=== PATIENT | male | born 1960 | race Caucasian/White ===

== ENCOUNTER 2017-05-12 17:58 | Emergency (ER) | payer BC ==
--- OUTSIDE RECORDS SUMMARY | 2017-05-12 18:02 | XMS REPORT | Clinical Summary ---
:1960 Author Organization [facility] Address [address] [place] [address] Care Team Providers Name Role Phone Luis Alberto Klein MD Primary Care Provider Allergies Active Allergy Reactions Severity Noted Date Comments No Known Drug Allergies 08/07/2015 Current Medications Prescription Sig. Disp. Refills Start Date End Date Status esomeprazole Take 40 mg by Active (NexIUM) 40 MG mouth daily capsule before breakfast. AMILoride (MIDAMOR) Take 5 mg by Active 5 MG tablet mouth 2 (two) times a day. ergocalciferol Take 50,000 Active (VITAMIN D2) 50,000 Units by mouth unit capsule 2 (two) times a week. Wednesday, lactulose 10 Take 20 g by Active gram/15 mL (15 mL) mouth 3 (three) solution times a day as needed (constipation). metoprolol tartrate Take 75 mg by Active (LOPRESSOR) 50 mg mouth 2 (two) tablet times a day. multivitamin with Chew 1 tablet Active minerals (CENTRUM daily with FLAVOR BURST) breakfast. tablet,chewable chewable tablet tiotropium Place 1 capsule Active (SPIRIVA) 18 mcg into inhaler per inhalation and inhale once capsule daily. macitentan Take 1 tablet 30 tablet 11 12/21/2016 Active (OPSUMIT) 10 mg (10 mg total) tablet by mouth daily. tadalafil (ADCIRCA) Take 2 tablets 60 tablet 11 03/03/2017 Active 20 mg tablet (40 mg total) by mouth daily. fluticasone Inhale 2 puffs 12 g 3 04/08/2017 Active (FLOVENT HFA) 110 2 (two) times a 9 mcg/actuation day. Rinse inhaler mouth after each treatment metoprolol Take 200 mg by 3 06/27/2015 Discontinued succinate XL mouth once 7 (TOPROL-XL) 200 MG daily. 24 hr tablet ESOMEPRAZOLE Take by mouth. Discontinued MAGNESIUM (NEXIUM 7 ORAL) ALLOPURINOL ORAL Take by mouth. Discontinued 7 metoprolol Take 200 mg by Discontinued succinate XL mouth. 7 (TOPROL XL) 200 MG 24 hr tablet furosemide (LASIX) Take 1 tablet 90 tablet 6 08/07/2015 Discontinued 40 MG tablet (40 mg total) 7 by mouth daily. AMILoride (MIDAMOR) Take 1 tablet 180 tablet 6 08/07/2015 Discontinued 5 MG tablet (5 mg total) by 7 mouth 2 (two) times a day. BREO ELLIPTA 100-25 INHALE 1 90 each 11 12/11/2015 Discontinued mcg/dose blister PUFF(S) EVERY 7 with device powder DAY BY for inhalation INHALATION ROUTE FOR 90 DAYS. OPSUMIT 10 mg TAKE 1 TABLET 30 tablet 12 12/27/2015 Discontinued tablet (10MG) BY MOUTH 7 ONCE DAILY. DO NOT HANDLE IF . DO NOT SPLIT, CRUSH, OR CHEW TABLET. REVIEW MEDICATION GUIDE. FOR REFIL albuterol Inhale 2 puffs 18 g 11 01/06/2016 Discontinued (PROVENTIL HFA) 90 every 6 (six) 7 mcg/actuation hours as needed inhaler for wheezing. fluticasone Inhale 2 puffs 12 g 11 03/03/2016 (FLOVENT HFA) 110 2 (two) times a 8 mcg/actuation day. inhalerIndications: Pulmonary hypertension SPIRIVA WITH INHALE 1 90 capsule 3 03/16/2016 Discontinued HANDIHALER 18 mcg CAPSULE VIA 7 per inhalation HANDIHALER ONCE capsule DAILY AT THE SAME TIME EVERY DAY tadalafil 20 mg Take 20 mg by 90 tablet 0 04/29/2016 Discontinued tablet mouth daily for 7 90 days. tadalafil 20 mg Take 20 mg by 90 tablet 0 06/01/2016 Discontinued tablet mouth daily for 7 90 days. ADCIRCA 20 mg TAKE 1 TABLET 90 tablet 4 07/28/2016 Discontinued tablet (20MG) BY MOUTH 7 DAILY. CALL TO REFILL. allopurinol Take 100 mg by Discontinued (ZYLOPRIM) 100 MG mouth daily. 7 tablet AMILoride (MIDAMOR) TAKE 1 TABLET 180 tablet 3 09/07/2016 Discontinued 5 MG tablet BY MOUTH TWICE 7 A DAY furosemide (LASIX) TAKE 1 TABLET 90 tablet 6 10/05/2016 Discontinued 40 mg tablet BY MOUTH EVERY 7 DAY lactulose 20 Take 30 mL (20 1000 mL 3 11/27/2016 Discontinued gram/30 mL solution g total) by 7 mouth 3 (three) times a day for 30 days. Take as needed to have 2 to 3 stools per day ergocalciferol Take 1 capsule 12 capsule 1 11/30/2016 Discontinued (VITAMIN D2) 50,000 (50,000 Units 7 unit capsule total) by mouth 2 (two) times a week for 12 doses. eomajcuu-syub-cco-f Chew 1 tablet 30 tablet 0 11/27/2016 Discontinued olic acid daily with 7 (multivitamin-iron- breakfast for minerals-folic 30 days. acid) 3,500-18-0.4 Centrum unit-mg-mg chewable table tablet,chewable chewable tablet thiamine (vitamin Take 1 tablet 30 tablet 0 11/27/2016 Discontinued B-1) 100 MG tablet (100 mg total) 7 by mouth daily for 30 days. tadalafil (ADCIRCA) Take 20 mg by Discontinued 20 mg tablet mouth daily. 8 furosemide (LASIX) Take 40 mg by Discontinued 40 mg tablet mouth daily. 7 doxycycline Take 1 capsule 14 capsule 0 12/11/2016 Discontinued (VIBRAMYCIN) 100 MG (100 mg total) 7 capsule by mouth 2 (two) times a day with meals for 7 days. furosemide (LASIX) Take 1 tablet 60 tablet 0 12/11/2016 40 mg tablet (40 mg total) 7 by mouth 2 (two) times a day for 30 days. traMADol (ULTRAM) Take 1 tablet 30 tablet 0 12/11/2016 50 mg tablet (50 mg total) 7 by mouth 3 (three) times a day as needed for moderate pain for up to 10 days. Active Problems Problem Noted Date Marijuana use 02/22/2017 Cognitive impairment 02/22/2017 Other ascites 12/07/2016 SBP (spontaneous bacterial peritonitis) 12/07/2016 Severe sepsis without septic shock 12/07/2016 Acquired hyperbilirubinemia 11/17/2016 Disorder of liver 11/17/2016 Obstructive sleep apnea syndrome 08/07/2015 Overview: Last Assessment & Plan: Using it regularly Last Assessment & Plan: Uses cpap every night Tolerating well Pulmonary hypertension 08/07/2015 Overview: Overview: Right and left heart cath by Dr. Reynolds PAP of 770-75/ 30 , LVEDP of 12; RA= a=12, X=4 mean=8; RV ( at end of procedure 65/8-10) Initial Data Patient tachycardic and multifocal PVC MVO2 67 Joaquin pheral sat=91; CO TD of 4.4 CI of 1.97; Vidhi CO of 6.35, this is low for liver disease. pfts done at [facility] 01/2014 pretty normal ie 92-94% percent predicted; tlc 100 % predicted ; dlco 83% predicted. CT reported ( not high res) normal parenchyma. Very bad hemodynamics initially . He had A course of letairis before and had severe lower limb edema with this. His initial hemodynamic showed high RAP and higher PAP but he was having a lot of tachy cardia and PVC then . No vasodilator benefit. Needs additional theapy . Will start opsumit given history of edema with letairis . Last Assessment & Plan: 6MWT with oxygen saturation- today labs- today Continue opsimut and adcirca- tolerating well Start pulmonary rehab Low salt diet Last Assessment & Plan: Continue adcirca Exam shows no evidence of RHF Hypercholesteremia 08/07/2015 Chest pain 05/30/2014 Hepatic cirrhosis 03/28/2014 Overview: Overview: Unclear etiology of his Live cirrhosis Patient does not know his MELD score Patient advised to make an apt to see Dr Devine in follow up Last Assessment & Plan: Sees Dr. Devine for cirrhosis of unclear etiology . Has regular MRI . Is apparently not hep C. He is not being considered for transplant as he is very well. His PH however is severe . He had FC IV symptoms on presentation ( syncope). Currently remains FC III, but better. No signs of heart failure. If transplant contemplated will have to have much better control of severe PH. Last Assessment & Plan: F/u with hepatology Obesity (BMI 30-39.9) 03/28/2014 Overview: Last Assessment & Plan: The patient is asked to make an attempt to improve diet and exercise patterns to aid in medical management of this problem. Start graded exercise program - stop when you start to feel tired or short of breath and rest for a few min and than can continue exercise Avoid processed meat, soups, canned food, sodas, nigerian food, fried food, fast food, chips and food in large quantities. Consider eating fish, chicken, vegetables and fruits Portion control - eat 1/4 less than your usual meal Consider seeing a exterior work helper Last Assessment & Plan: The patient is asked to make an attempt to improve diet and exercise patterns to aid in medical management of this problem. Start graded exercise program - stop when you start to feel tired or short of breath and rest for a few min and than can continue exercise Avoid processed meat, soups, canned food, sodas, nigerian food, fried food, fast food, chips and food in large quantities. Consider eating fish, chicken, vegetables and fruits Portion control - eat 1/4 less than your usual meal Consider seeing a exterior work helper Shortness of breath 03/28/2014 Overview: Last Assessment & Plan: Still pretty limited. Plan: opsumit to background adcirca. Continue inhalers . If not improvement on echo and walk will consider inhaled tyvaso. Last Assessment & Plan: Unchanged shortness of breath Thyroid nodule 03/28/2014 Overview: Last Assessment & Plan: Needs work-up of thyroid nodule Defer to his primary or he can see a [facility] Cuff Matcher Check TSH Gastroesophageal reflux disease 02/15/2005 Overview: Last Assessment & Plan: Barium swallow- as he has cough and hx reflux Elevate the head of the bed 5 inches Wait 3 hours b/w and laying down Last Assessment & Plan: Stable on nexium Encounters Date Type Specialty Care Team Description 04/19/2017 Orders Only Transplant Shree Devine MD 04/19/2017 Telephone Transplant Jorgesandralla, Marijuana Screen/Titer DIMA Russell 04/14/2017 Hospital Encounter Pulmonology Doris Handy, Pulmonary hypertension; Obstructive sleep apnea syndrome; Shortness of breath; Gastroesophageal reflux disease without esophagitis; Cirrhosis of liver without ascites, unspecified hepatic cirrhosis type 04/14/2017 Hospital Encounter Procedural Doris Handy, Shortness of breath Cardiology 04/08/2017 Refill Pulmonology Galindo Castellanos RN 04/08/2017 Refill Pulmonology Galindo Castellanso, DIMA 03/25/2017 Telephone Transplant Casarella, Liver MRB Outcome DIMA Russell 03/25/2017 Documentation Transplant Casarella, Liver MRB Outcome DIMA Russell 03/22/2017 Orders Only Transplant Shree Devine MD 03/03/2017 Refill Pulmonology Deon Glover MD 02/25/2017 Telephone Transplant Edmondlla, Update on Pain Mgmt DIMA Russell Appt 02/22/2017 Hospital Encounter Transplant Shree Devine Cognitive impairment (Primary Dx); MD Anita Marijuana use 02/22/2017 Telephone Transplant Casarellschuyler, Consult Request for DIMA Russellpoultry barn manager 02/22/2017 Telephone Transplant Woelfel, Speak to Coordinator JOSE Gomez 02/22/2017 Telephone Transplant Casarellschuyler, Follow-up DIMA Russell 02/17/2017 Office Visit Pulmonology Doris Handy, Obstructive sleep apnea syndrome (Primary Dx); Shortness of breath; Pulmonary hypertension; Gastroesophageal reflux disease without esophagitis; Obesity (BMI 30-39.9); Cirrhosis of liver without ascites, unspecified hepatic cirrhosis type 02/10/2017 Hospital Encounter Radiology Rashel Funk MD 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 02/01/2017 Telephone Transplant Edmondlla, Liver MRB Outcome DIMA Russell 02/01/2017 Transcribe Orders Transplant Casarella, Liver transplant candidate (Primary Dx); DIMA Russell ELIZABETH (nonalcoholic steatohepatitis) 01/28/2017 Documentation Transplant Casarella, Liver MRB Outcome - DIMA Russell Deferred 01/28/2017 Telephone Transplant Malu, positive drug screen DAISY Mock 01/27/2017 Documentation Transplant John Olivera Liver MRB Presentation Juan 01/18/2017 Hospital Encounter Radiology Donna Granados Cirrhosis of liver MD Rolf with ascites, unspecified hepatic cirrhosis type 01/18/2017 Hospital Encounter Radiology Donna Granados Cirrhosis of liver MD Rolf with ascites, unspecified hepatic cirrhosis type 01/18/2017 Hospital Encounter Radiology Donna Granados Cirrhosis of liver MD Rolf with ascites, unspecified hepatic cirrhosis type 01/18/2017 Hospital Encounter Radiology Donna Granados Cirrhosis of liver MD Rolf with ascites, unspecified hepatic cirrhosis type 01/18/2017 Hospital Encounter Procedural Donna Granados Cirrhosis of liver Cardiology MD Rolf with ascites, unspecified hepatic cirrhosis type 01/18/2017 Hospital Encounter Transplant Donna Granados MD 01/18/2017 Hospital Encounter Transplant Donna Granados MD Weber, Sue 01/18/2017 Hospital Encounter Transplant Basil Guidry, Screening for ischemic MD heart disease 01/18/2017 Hospital Encounter Transplant Basil Guidry MD 01/18/2017 Hospital Encounter Transplant Donna Granados MD 01/18/2017 Hospital Encounter Transplant Donna Granados Cirrhosis of liver MD Rolf with ascites, unspecified hepatic cirrhosis type 01/18/2017 Ancillary Orders Radiology Donna Granados of liver MD Rolf with ascites, unspecified hepatic cirrhosis type 01/18/2017 Transcribe Orders Transplant John Olivera Screening for ischemic Juan heart disease (Primary Dx) 01/14/2017 Transcribe Orders Access Rashel Funk MD 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 (Primary Dx) 12/29/2016 Transcribe Orders Transplant John Olivera Cirrhosis of liver Juan with ascites, unspecified hepatic cirrhosis type (Primary Dx) 12/21/2016 Refill Pulmonology Galindo Castellanos, RN 12/16/2016 Telephone Transplant Manjula Vines Referral - Liver Txp RN 12/07/2016 Hospital Encounter General Internal Marnie Hugo Other ascites ( Primary - Medicine MD Gustavo Dx) 12/11/2016 Jl Merrill MD 11/27/2016 Orders Only Pulmonology Alfaro, Kori, Shortness of breath MA (Primary Dx) 11/25/2016 Procedure Pass Procedural Cardiology 11/25/2016 Surgery Procedural Sam, Orion Cv right and left Cardiology MD Stephen heart cath selective angiography lv [88917 (CPT)] 11/23/2016 Procedure Pass General Internal Medicine 11/23/2016 Procedure Pass Procedural Cardiology 11/17/2016 Hospital Encounter General Internal [facility] Medicine MD Phong 11/27/2016 11/04/2016 Office Visit Pulmonology Doris Handy Pulmonary hypertension (Primary Dx); Obstructive sleep apnea syndrome; Shortness of breath; Gastroesophageal reflux disease without esophagitis; Cirrhosis of liver without ascites, unspecified hepatic cirrhosis type; Obesity (BMI 30-39.9) 11/04/2016 Orders Only PulmonDoris Saenz MD 10/05/2016 Refill PulmonDoris Saenz MD 09/07/2016 Refill PulmonDoris Saenz MD 08/05/2016 Lab Lab Doris Handy MD 08/05/2016 Office Visit Pulmonology Doris Handy Pulmonary hypertension (Primary Dx); Obstructive sleep apnea syndrome; Shortness of breath; Gastroesophageal reflux disease without esophagitis; Cirrhosis of liver without ascites, unspecified hepatic cirrhosis type 07/28/2016 Hospital Encounter Pulmonology Doris Handy Pulmonary hypertension; Obstructive sleep apnea syndrome; Hepatic cirrhosis, unspecified hepatic cirrhosis type; Adult body mass index greater than 30; 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 Hospital Encounter Pulmonology Doris Handy Pulmonary hypertension; Obstructive sleep apnea syndrome; Shortness of breath; Gastroesophageal reflux disease with esophagitis; Alcoholic cirrhosis of liver without ascites 07/28/2016 Hospital Encounter Procedural Doris Handy, Pulmonary hypertension; Cardiology Obstructive sleep apnea syndrome; Shortness of breath; Gastroesophageal reflux disease with esophagitis; Alcoholic cirrhosis of liver without ascites 07/28/2016 Ancillary Orders Pulmonology Doris Handy Pulmonary hypertensive MD venous disease 07/28/2016 Refill Pulmonology Jannette Langley MD 06/22/2016 Office Visit Pulmonology Doris Handy, Pulmonary hypertension (Primary Dx); Obstructive sleep apnea syndrome; Shortness of breath; Gastroesophageal reflux disease with esophagitis; Alcoholic cirrhosis of liver without ascites 06/08/2016 Orders Only Pulmonology López, Clarence pulmonary hypertension ( Primary Dx); JOSE Singh Idiopathic sleep related nonobstructive alveolar hypoventilation; Hepatic cirrhosis, unspecified hepatic cirrhosis type; Adult BMI > 30 06/08/2016 Orders Only Pulmonology Samantha Dawn MA 06/04/2016 Documentation Pulmonology rogers Castellanos RN 06/01/2016 Refill Pulmonology Galindo Castellanos RN after 05/11/2016 Immunizations Name Dates Previously Given Next Due FLUCELVAX QUAD PF (0.5mL syringe) 11/26/2016 FLUZONE HIGH-DOSE PF 02/15/2014 Pneumococcal Conjugate 13-Valent 11/26/2016 Family History Medical History Relation Name Comments Hypertension Brother Hypertension Father Stroke Father mild Other Maternal Grandfather NE Diabetes Mother Relation Name Status Comments Brother Father Maternal Grandfather Mother Social History Tobacco Use Types Packs/Day Years Used Date Former Smoker Cigarettes 1 10 Quit: 1994 Smokeless Tobacco: Never Used Tobacco Cessation: Counseling Given: No Alcohol Use Drinks/Week oz/Week Comments No Sex Assigned at Date Recorded Not on file Last Filed Vital Signs Vital Sign Reading Time Taken Blood Pressure 152/81 02/22/2017 10:17 AM CAR RECORD CLERK Pulse 66 02/22/2017 10:17 AM CAR RECORD CLERK Temperature 36.8 C (98.2 F) 02/22/2017 10:15 AM CAR RECORD CLERK Respiratory Rate 16 02/22/2017 10:15 AM CAR RECORD CLERK Oxygen Saturation 98% 02/22/2017 10:17 AM CAR RECORD CLERK Inhaled Oxygen Concentration - - Weight 83.1 kg (183 lb 3.2 oz) 02/22/2017 10:15 AM CAR RECORD CLERK Height 180.3 cm (5' 11") 02/22/2017 10:15 AM CAR RECORD CLERK Body Mass Index 25.55 02/22/2017 10:15 AM CAR RECORD CLERK Plan of Treatment Date Type Specialty Care Team Description 06/14/2017 Office Visit Pulmonology Doris Handy MD [address] [facility] [address] [place] [id number] Health Maintenance Due Date Last Done Comments COLONOSCOPY 02/12/2008 INFLUENZA VACCINE Completed 11/26/2016, 02/15/2014 Procedures Procedure Name Priority Date/Time Associated Comments Diagnosis ECHOCARDIOGRAM 2D Routine 04/14/2017 11:37 Shortness of Results for this COMPLETE W MMODE AM CAR RECORD CLERK breath procedure are in SPECTRAL COLOR DOPPLER the results (86516) section. CV RIGHT AND LEFT HEART Routine 11/25/2016 6:28 Results for this CATH SELECTIVE CORONARY PM CDT procedure are in LV the results section. ECHOCARDIOGRAM 2D Routine 11/18/2016 12:15 Results for this COMPLETE W MMODE PM CDT procedure are in SPECTRAL COLOR DOPPLER the results (01140) section. ECHOCARDIOGRAM 2D Routine 07/28/2016 2:05 Pulmonary Results for this COMPLETE W MMODE PM CDT hypertension procedure are in SPECTRAL COLOR DOPPLER Obstructive sleep the results (37579) apnea syndrome section. Shortness of breath Gastroesophageal reflux disease with esophagitis Alcoholic cirrhosis of liver without ascites after 05/11/2016 Results Marijuana metabolite, quantitative, urine (04/19/2017 4:08 PM)Only the most recent of2 resultswithin the time period is included. Component Value Ref Range Marijuana metabolite 5 ng/mL Comment: GCMS Cutoff: 5 ng/mL Reference Range: negative This test was developed and its analytical performance characteristics have been determined by [employer] [place]. It has not been cleared or approved by the U.S. Food and Drug Administration. This assay has been validated pursuant to the CLIA regulations and is used for clinical purposes. Specimen Performing Laboratory [facility] Narrative FASTING:NO FASTING: NO Echocardiogram complete w contrast and 3D if needed (04/14/2017 11:37 AM) Specimen Performing Laboratory [facility] [address] [place] [address] Narrative Echocardiography Report [address] [place] [address] Pat.Name:QUENTIN YARBROUGH Pat.ID:[id number] .Date: 04/14/2017 Refer.MD:DORIS HANDY MD Exam Time: 11:10:00 AM Study Type:Routine Echo Height:72inWeight:190lb BSA: 2.09 m2 DOBAge:1960,57Y Sex: MALEBP:105/61 HR:75 bpmSonogrphr: JAQUELINE Rodriguez Pat. Stat.:OutpatientStudy Status:Final Echo Event ID:[id number] Order ID:[id number] Reason for Study:Pulmonary Hypertension History / Clinical:Pulmonary Hypertension, Shortness of Breath, Liver Cirrhosis Procedures:2D Echo, Colorflow Doppler, Strain, Intravenous Saline Contrast Race:C SUMMARY: Severe pulmonary hypertension. FINDINGS: LV: LV size is normal. There is mild concentric LV hypertrophy. LVsystolic function is normal. Overall wall motion is normal.Estimated EF is 60-64%. Septal motion is paradoxicalsecondary to RV systolic pressure overload. RV: RV size is moderately enlarged. RV systolic function is mild tomoderately depressed. RV S 15cm/s. TAPSE 2.4 cm. LA: LA volume is mildly enlarged. RA: RA volume is enlarged. AO: Aortic root diameter is normal. JOAQUIN: Trace posterior pericardial effusion. PA: Pulmonary artery diameter is enlarged. AV: Normal trileaflet aortic valve. Focal calcification of AV leaflets. MV: No structural MV abnormalities noted. PV: No structural PV abnormalities noted. A trace of pulmonic regurgitation. TV: No structural TV abnormalities noted. Mild to moderate tricuspidregurgitation Cunha: LV relaxation is impaired. LV filling pressure is normal. Other:Estimated PA systolic pressure is 105 mmHg, assuming a mean RAPof 5 mmHg. MEASUREMENTS: 2D Parasternal Long [place] LVOT 2.1 cmLA Ds4.3 cm LVIDd4.8 cmIndex 2.3 cm/m Ao An2 cm LVIDs3 cmAo Rtd 2.9 cm Index1.4 cm/m LV%fs 37.8 % LV Mpbq956.8 g(122-174) IVSd 1.2 cmLVM Ymhth649.3 g/m2 LVPWd1.1 cmRWT0.5 LA Sng Plane LA Area 24 cm2(8.8-23.4) LA Vol 64 ml Index30.6 ml/m LA LngAx 7.6 cm RA Sng Plane RA Area 33.1 cm2(8.3-19.5) RA Vol 128 ml Index61.2 ml/m RA LngAx 7 cm DOPPLER LVOT Stroke Vol LVOT 2.1 cmLVOT CO5.8 l/min LVOT TVI24.5 cmLVOT CI2.8 l/m/m2 LVOT Tm307 zuftQB37 bpm LVOT SV 84.9 ml Signed 04/14/2017 01:56 PM Michael Lehman MD Procedure Note Interface, Radiology Results In - 04/14/2017 1:57 PM CAR RECORD CLERK Echocardiography Report [address] [place] [address] Pat.Name: QUENTIN YARBROUGH Pat.ID: [id number] .Date: 04/14/2017 Refer.MD: DORIS HANDY MD Exam Time: 11:10:00 AM Study Type:Routine Echo Height: 72in Weight: 190lb BSA: 2.09 m2 Age: 10 1960,57Y Sex: MALE BP: 105/61 HR: 75 bpm Sonogrphr: JAQUELINE Rodriguez Pat. Stat.:Outpatient Study Status:Final Echo Event ID:[id number] Order ID: [id number] Reason for Study:Pulmonary Hypertension History / Clinical:Pulmonary Hypertension, Shortness of Breath, Liver Cirrhosis Procedures:2D Echo, Colorflow Doppler, Strain, Intravenous Saline Contrast Race: C SUMMARY: Severe pulmonary hypertension. FINDINGS: LV: LV size is normal. There is mild concentric LV hypertrophy. LV systolic function is normal. Overall wall motion is normal. Estimated EF is 60-64%. Septal motion is paradoxical secondary to RV systolic pressure overload. RV: RV size is moderately enlarged. RV systolic function is mild to moderately depressed. RV S 15cm/s. TAPSE 2.4 cm. LA: LA volume is mildly enlarged. RA: RA volume is enlarged. AO: Aortic root diameter is normal. JOAQUIN: Trace posterior pericardial effusion. PA: Pulmonary artery diameter is enlarged. AV: Normal trileaflet aortic valve. Focal calcification of AV leaflets. MV: No structural MV abnormalities noted. PV: No structural PV abnormalities noted. A trace of pulmonic regurgitation. TV: No structural TV abnormalities noted. Mild to moderate tricuspid regurgitation Cunha: LV relaxation is impaired. LV filling pressure is normal. Other: Estimated PA systolic pressure is 105 mmHg, assuming a mean RAP of 5 mmHg. MEASUREMENTS: 2D Parasternal Long [place] LVOT 2.1 cm LA Ds 4.3 cm LVIDd 4.8 cm Index 2.3 cm/m Ao An 2 cm LVIDs 3 cm Ao Rtd 2.9 cm Index 1.4 cm/m LV%fs 37.8 % LV Mass 215.8 g (122-174) IVSd 1.2 cm LVM Index 103.3 g/m2 LVPWd 1.1 cm RWT 0.5 LA Sng Plane LA Area 24 cm2 (8.8-23.4) LA Vol 64 ml Index 30.6 ml/m LA LngAx 7.6 cm RA Sng Plane RA Area 33.1 cm2 (8.3-19.5) RA Vol 128 ml Index 61.2 ml/m RA LngAx 7 cm DOPPLER LVOT Stroke Vol LVOT 2.1 cm LVOT CO 5.8 l/min LVOT TVI 24.5 cm LVOT CI 2.8 l/m/m2 LVOT Tm 307 msec HR 68 bpm LVOT SV 84.9 ml Signed 04/14/2017 01:56 PM Michael Lehman MD CT Abdomen Pelvis W Wo Contrast (02/10/2017 3:15 PM) Specimen Performing Laboratory [facility] [address] [place] [address] Narrative EXAMINATION:CT ABDOMEN PELVIS W WO CONTRAST CLINICAL HISTORY:D49.511 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 Subsequently, postcontrast CT of the abdomen and pelvis was obtained with multiphase renal mass and CT urogram protocol. Sagittal and coronal computerized reformatted images were also obtained. Scan was performed using radiation dose reduction techniques. COMPARISON:MRI November 24, 2016 FINDINGS: There is a 1.3 cm exophytic cortical lesion laterally in the upper interpolar right kidney (series 5 image 70) demonstrating enhancement, similar to recent MRI of November 24, 2016. No definite macroscopic fat is seen in this lesion. No other renal mass identified. No nephrolithiasis or hydronephrosis. No significant lymphadenopathy. The liver cirrhotic. No suspicious liver mass. There are couple of hepatic cysts, larger 2.8 cm near the gallbladder fossa. Portal vein is patent. Large varices are seen throughout the abdomen including spontaneous splenorenal and right mesorenal shunts. Pancreas is atrophic. Gallbladder is absent. Spleen is moderately enlarged. There is tiny perihepatic ascites. Scattered mild diverticulosis in the colon. There are a few old right rib fractures. Marked aortoiliac calcifications. Small umbilical hernia with fat. IMPRESSION: 1. A joaquin-cm enhancing cortical lesion in the lateral right kidney is again suspicious for a very early RCC. 2.Liver cirrhosis and portal hypertension with multiple large intra- abdominal varices and portosystemic shunts. 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 Subsequently, postcontrast CT of the abdomen and pelvis was obtained with multiphase renal mass and CT urogram protocol. Sagittal and coronal computerized reformatted images were also obtained. Scan was performed using radiation dose reduction techniques. COMPARISON: MRI November 24, 2016 FINDINGS: There is a 1.3 cm exophytic cortical lesion laterally in the upper interpolar right kidney (series 5 image 70) demonstrating enhancement, similar to recent MRI of November 24, 2016. No definite macroscopic fat is seen in this lesion. No other renal mass identified. No nephrolithiasis or hydronephrosis. No significant lymphadenopathy. The liver cirrhotic. No suspicious liver mass. There are couple of hepatic cysts, larger 2.8 cm near the gallbladder fossa. Portal vein is patent. Large varices are seen throughout the abdomen including spontaneous splenorenal and right mesorenal shunts. Pancreas is atrophic. Gallbladder is absent. Spleen is moderately enlarged. There is tiny perihepatic ascites. Scattered mild diverticulosis in the colon. There are a few old right rib fractures. Marked aortoiliac calcifications. Small umbilical hernia with fat. IMPRESSION: 1. A joaquin-cm enhancing cortical lesion in the lateral right kidney is again suspicious for a very early RCC. 2. Liver cirrhosis and portal hypertension with multiple large intra- abdominal varices and portosystemic shunts. [facility]-[id number] XR Panorex (01/18/2017 4:30 PM) Specimen Performing Laboratory [facility] [address] [place] [address] Narrative Study:XR PANOREX History:K74.60 Unspecified cirrhosis of liver, Liver transplant evaluation COMPARISON:None. IMPRESSION: Single Panorex view of the maxilla and mandible. No destructive osseous lesions are seen. No periapical lucencies seen within the visualized teeth. No cavity seen on x-ray. Overlying soft tissues are unremarkable. [facility]-[id number] Procedure Note Interface, Radiology Results Incoming - 01/18/2017 5:14 PM CAR RECORD CLERK Study:XR PANOREX History:K74.60 Unspecified cirrhosis of liver, Liver transplant evaluation COMPARISON:None. IMPRESSION: Single Panorex view of the maxilla and mandible. No destructive osseous lesions are seen. No periapical lucencies seen within the visualized teeth. No cavity seen on x-ray. Overlying soft tissues are unremarkable. [facility]-[id number] XR Chest 2 Vw (01/18/2017 4:24 PM) Specimen Performing Laboratory [facility] [address] [place] [address] Narrative XR CHEST 2 VW CLINICAL INDICATION:K74.60 Unspecified cirrhosis of liver, Liver transplant evaluation COMPARISON:12/07/2016 IMPRESSION: Perihilar atelectasis present on prior exam has resolved. The lungs are clear. There is no effusion or pneumothorax. Heart and mediastinal contours are within normal limits on this slightly lordotic view. Bones are intact. No active disease. Thank you for allowing us to participate in the care of your patient. [facility]-[id number] Procedure Note Hm Interface, Radiology Results Incoming - 01/18/2017 4:46 PM CAR RECORD CLERK XR CHEST 2 VW CLINICAL INDICATION: K74.60 Unspecified cirrhosis of liver, Liver transplant evaluation COMPARISON: 12/07/2016 IMPRESSION: Perihilar atelectasis present on prior exam has resolved. The lungs are clear. There is no effusion or pneumothorax. Heart and mediastinal contours are within normal limits on this slightly lordotic view. Bones are intact. No active disease. Thank you for allowing us to participate in the care of your patient. [id number] Bone Density (01/18/2017 4:04 PM) Specimen Performing Laboratory [facility] [address] [place] [address] Narrative EXAMINATION:BONE DENSITY CLINICAL HISTORY:K74.60 Unspecified cirrhosis of liver, Liver transplant evaluation COMPARISON:None. The results of this study expressed as bone mineral density (BMD) were as follows: AP spine (L1-L4) BMD: 1.269 g/cm2 T-Score: 0.4 Z-Score: 0.6 Percent change: No prior exam. % Dual Femur (Total Mean): BMD: 0.920 g/cm2 T-Score: -1.3 Z-Score:-0.9 Percent change: No prior exam. % Femur FRAX: Risk factors: None. 10 year probability of fracture: 1.Major osteoporotic: 7.5% 2.Hip: 1.4% 3.Based on femur left neck BMD Trabecular Bone Score (TBS): TBS L1-L4: 1.307,partially degraded microarchitecture. The 10 year probability of fracture, adjusted for TBS: 1.Major Osteoporotic Fracture: 7.8% 2.Hip Fracture:1.3% Impression:Bone mineral density values as above. Notes: *The world health organization (WHO) has classified the patient's T-score as follows: Normal=T-score at or above -1.0 SD Osteopenia=T-score between -1.0 and -2.5 SD Osteoporosis=T-score at or below minus 2.5 SD For premenopausal women, men under the age 50 years, and children the WHO classification does not apply. In these individuals please assess bone mineral density with Z scores for each skeletal site examined. Z scores above -2.0: Within expected range for age. Z scores lower than -2.0:Low bone density for age. The TBS is derived from the texture of the DEXA image and has been shown to be related to bone microarchitecture and fracture risk. This data provides information independent of BMD value; is used as a complement to the data obtained from the DEXA analysis and the clinical examination. The TBS can assist the healthcare professional in assessment of fracture risk and in monitoring the effect of treatments on patient over time. [facility]-[id number] Procedure Note Hm Interface, Radiology Results Incoming - 01/18/2017 4:10 PM CAR RECORD CLERK EXAMINATION: BONE DENSITY CLINICAL HISTORY: K74.60 Unspecified cirrhosis of liver, Liver transplant evaluation COMPARISON: None. The results of this study expressed as bone mineral density (BMD) were as follows: AP spine (L1-L4) BMD: 1.269 g/cm2 T-Score: 0.4 Z-Score: 0.6 Percent change: No prior exam. % Dual Femur (Total Mean): BMD: 0.920 g/cm2 T-Score: -1.3 Z-Score: -0.9 Percent change: No prior exam. % Femur FRAX: Risk factors: None. 10 year probability of fracture: 1. Major osteoporotic: 7.5% 2. Hip: 1.4% 3. Based on femur left neck BMD Trabecular Bone Score (TBS): TBS L1-L4: 1.307, partially degraded microarchitecture. The 10 year probability of fracture, adjusted for TBS: 1. Major Osteoporotic Fracture: 7.8% 2. Hip Fracture: 1.3% Impression: Bone mineral density values as above. Notes: *The world health organization (WHO) has classified the patient's T-score as follows: Normal=T-score at or above -1.0 SD Osteopenia=T-score between -1.0 and -2.5 SD Osteoporosis=T-score at or below minus 2.5 SD For premenopausal women, men under the age 50 years, and children the WHO classification does not apply. In these individuals please assess bone mineral density with Z scores for each skeletal site examined. Z scores above -2.0: Within expected range for age. Z scores lower than -2.0: Low bone density for age. The TBS is derived from the texture of the DEXA image and has been shown to be related to bone microarchitecture and fracture risk. This data provides information independent of BMD value; is used as a complement to the data obtained from the DEXA analysis and the clinical examination. The TBS can assist the healthcare professional in assessment of fracture risk and in monitoring the effect of treatments on patient over time. [id number] PV carotid duplex (01/18/2017 3:15 PM) Specimen Performing Laboratory [facility] [address] Vascular Ultrasound Laboratory Carotid Artery Duplex Report [address] [place] [address] For quality control chemist purposes, the categorization of the degree of the stenosis of this exam is based on criteria described in the IAC carotid stenosis grading white paper( www.intersocietal.org/Vascular) and Danyelle Manzanares., Shanice MoralezB., et al. Carotid artery stenosis: milan-scale and Doppler US diagnosis--Society of Radiologists in Ultrasound Consensus Conference. Radiology. 2003 Nov; 229(2):340-6. Pat.Name:QUENTIN YARBROUGH Pat.ID:[id number] .Date: 01/18/2017 Refer.:DONNA GRANADOS MD Exam Time: 2:31:00 PMStudy Type:Carotid Height:72inWeight:190lb BSA: 2.09 m2 DOBAge:1960,56Y Sex: MALESonogrphr: Arlet Cortes RVT Pat. Stat.:OutpatientRoom:OPC16 TapeVol: , CPT - 4: 48740 Echo Event ID:[id number] Order ID:[id number] Reason for Study:Pre-operative cardiovascular exam for liver transplant evaluation.History of cirrhosis of liver with ascites. Race:C SUMMARY: PHYSICAL ASSESSMENT BloodPulsesCarotid Pressure Carotid TemporalBruit Right 137/80 ++0 Left 159/89 ++0 CAROTID ARTERY SCAN RIGHT:There is hard plaque in the distalcommon carotid artery. There is hard and calcified plaque noted in the bulb extending into the internal carotid artery. The external carotid artery is clear. Colorflow is normal. LEFT: There is hard plaque in the distal common carotid artery. There is hard and calcified plaque noted in the bulb extending into the internal and external carotid artery.Colorflow is normal. There is a round cystic structure seenin the thyroid, measuring 3.3 x 3.1 x 3.9cm. PRELIMINARY FINDINGS 1. <50%stenosis in the bulb and internal carotid artery, bilaterally. 2. <50% stenosis in the left external carotid artery. 3. Non-stenotic plaque in the common carotid arterybilaterally. 4.There is a round cystic structure seenin theleft thyroid, measuring 3.3 x 3.1 x 3.9cm. PHYSICIAN INTERPRETATION Bilateral carotid duplex examination demonstrated atherosclerotic plaques in the bulbs/ CCAs. Less than 50% stenosis in the bulb and internal carotid artery, bilaterally. Both vertebral arteries are antegrade. Incidental finding: huge left thyroid cyst. Carotid Findings:RightLeft Verteb.Flw AntegradeAntegrade Subclavian TriphasicTriphasic MEASUREMENTS: DOPPLER Left CCA Dist CCA Dist PSV53.9 cm/sCCA Dist EDV14.7 cm/s Left CCA Mid CCA Mid PSV 52.9 cm/sCCA Mid EDV 11.5 cm/s Left CCA Prox CCA Prox PSV75.6 cm/sCCA Prox EDV17 cm /s Left ICA Dist ICA Dist PSV70.9 cm/Artis Dist EDV32.8 cm/s Left ICA Mid ICA Mid PSV 53.9 cm/Artis Mid EDV 23.7 cm/s Left ICA Prox ICA Prox PSV41 cm/Artis Prox EDV18.8 cm /s Left ECA Prox ECA Prox PSV45.1 cm/sECA Prox EDV9.38 cm/s Left Vertebral Vertebral PSV 26.7 cm/sVertebral EDV 9.04 cm/s Right CCA Dist CCA Dist PSV52.8 cm/sCCA Dist EDV14.1 cm/s Right CCA Mid CCA Mid PSV 66.8 cm/sCCA Mid EDV 17 cm /s Right CCA Prox CCA Prox PSV61.6 cm/sCCA Prox EDV9.38 cm/s Right ICA Dist ICA Dist PSV47.1 cm/Artis Dist EDV22.7 cm/s Right ICA Mid ICA Mid PSV 44.3 cm/Artis Mid EDV 17.1 cm/s Right ICA Prox ICA Prox PSV45.6 cm/Artis Prox EDV15.7 cm/s Right ECA Prox ECA Prox PSV42.8 cm/sECA Prox EDV7.46 cm/s Right Vertebral Vertebral PSV 36.1 cm/sVertebral EDV 12.2 cm/s Superficial Femoral Artery Left Superficia0.78Left Eekqrlsypc80.5 cm/ s Left Wxdxrlpqvw51.4 cm/s Right ICA/CCA Ratio ICA/CCA PSV0.683 Left ICA/CCA Ratio ICA/CCA PSV0.775 Signed 01/18/2017 04:08 PM Dania Mar MD, RPVI Procedure Note Interface, Radiology Results In - 01/18/2017 4:09 PM [facility] Vascular Ultrasound Laboratory Carotid Artery Duplex Report [address] [place] [address] For quality control chemist purposes, the categorization of the degree of the stenosis of this exam is based on criteria described in the IAC carotid stenosis grading white paper( www.intersocietal.org/Vascular) and Danyelle Manzanares., Parmjit Moralez., et al. Carotid artery stenosis: milan-scale and Doppler US diagnosis--Society of Radiologists in Ultrasound Consensus Conference. Radiology. 2003 Nov; 229(2):340-6. Pat.Name: QUENTIN YARBROUGH Pat.ID: [id number] .Date: 01/18/2017 Refer.MD: DONNA GRANADOS MD Exam Time: 2:31:00 PM Study Type:Carotid Height: 72in Weight: 190lb BSA: 2.09 m2 Age: 10 1960,56Y Sex: MALE Sonogrphr: Arlet Cortes RVT Pat. Stat.:Outpatient Room: OPC16 Tape Vol: , CPT - 4: 89321 Echo Event ID:[id number] Order ID: [id number] Reason for Study:Pre-operative cardiovascular exam for liver transplant evaluation. History of cirrhosis of liver with ascites. Race: C SUMMARY: PHYSICAL ASSESSMENT Blood Pulses Carotid Pressure Carotid Temporal Bruit Right 137/80 + + 0 Left 159/89 + + 0 CAROTID ARTERY SCAN RIGHT:There is hard plaque in the distalcommon carotid artery. There is hard and calcified plaque noted in the bulb extending into the internal carotid artery. The external carotid artery is clear. Colorflow is normal. LEFT: There is hard plaque in the distal common carotid artery. There is hard and calcified plaque noted in the bulb extending into the internal and external carotid artery. Colorflow is normal. There is a round cystic structure seen in the thyroid, measuring 3.3 x 3.1 x 3.9cm. PRELIMINARY FINDINGS 1. <50% stenosis in the bulb and internal carotid artery, bilaterally. 2. <50% stenosis in the left external carotid artery. 3. Non-stenotic plaque in the common carotid artery bilaterally. 4. There is a round cystic structure seen in the left thyroid, measuring 3.3 x 3.1 x 3.9cm. PHYSICIAN INTERPRETATION Bilateral carotid duplex examination demonstrated atherosclerotic plaques in the bulbs/ CCAs. Less than 50% stenosis in the bulb and internal carotid artery, bilaterally. Both vertebral arteries are antegrade. Incidental finding: huge left thyroid cyst. Carotid Findings: Right Left Verteb.Flw Antegrade Antegrade Subclavian Triphasic Triphasic MEASUREMENTS: DOPPLER Left CCA Dist CCA Dist PSV 53.9 cm/s CCA Dist EDV 14.7 cm/s Left CCA Mid CCA Mid PSV 52.9 cm/s CCA Mid EDV 11.5 cm/s Left CCA Prox CCA Prox PSV 75.6 cm/s CCA Prox EDV 17 cm/s Left ICA Dist ICA Dist PSV 70.9 cm/s ICA Dist EDV 32.8 cm/s Left ICA Mid ICA Mid PSV 53.9 cm/s ICA Mid EDV 23.7 cm/s Left ICA Prox ICA Prox PSV 41 cm/s ICA Prox EDV 18.8 cm/s Left ECA Prox ECA Prox PSV 45.1 cm/s ECA Prox EDV 9.38 cm/s Left Vertebral Vertebral PSV 26.7 cm/s Vertebral EDV 9.04 cm/s Right CCA Dist CCA Dist PSV 52.8 cm/s CCA Dist EDV 14.1 cm/s Right CCA Mid CCA Mid PSV 66.8 cm/s CCA Mid EDV 17 cm/s Right CCA Prox CCA Prox PSV 61.6 cm/s CCA Prox EDV 9.38 cm/s Right ICA Dist ICA Dist PSV 47.1 cm/s ICA Dist EDV 22.7 cm/s Right ICA Mid ICA Mid PSV 44.3 cm/s ICA Mid EDV 17.1 cm/s Right ICA Prox ICA Prox PSV 45.6 cm/s ICA Prox EDV 15.7 cm/s Right ECA Prox ECA Prox PSV 42.8 cm/s ECA Prox EDV 7.46 cm/s Right Vertebral Vertebral PSV 36.1 cm/s Vertebral EDV 12.2 cm/s Superficial Femoral Artery Left Superficia 0.78 Left Superficia 11.5 cm/s Left Superficia 52.4 cm/s Right ICA/CCA Ratio ICA/CCA PSV 0.683 Left ICA/CCA Ratio ICA/CCA PSV 0.775 Signed 01/18/2017 04:08 PM Dania Mar MD, RPVI Low resolution full typing by SSO (01/18/2017 10:55 AM) Component Value Ref Range Low resolution full typing by SSO See link below for PDF Lab Report Specimen Performing Laboratory [facility] DEPARTMENT OF PATHOLOGY [address] [address] C1Q class 1 & 2 antibody (01/18/2017 10:55 AM) Component Value Ref Range C1Q class 1 & 2 antibody See link below for PDF Lab Report Specimen Performing Laboratory [facility] [address] [address] Syphilis treponemal IgG (01/18/2017 10:55 AM) Component Value Ref Range Syphilis treponemal IgG Non-reactiveComment: Non-reactive: No Non-reactive serological evidence of Syphilis infection Specimen Performing Laboratory Serum [facility] [address] [address] Anti smooth muscle Ab screen (01/18/2017 10:55 AM) Component Value Ref Range Anti smooth muscle Ab screen Not Detected Not-Detected Specimen Performing Laboratory Blood [facility] [address] [address] Total iron binding capacity (01/18/2017 10:55 AM)Only the most recent of2 resultswithin the time period is included. Component Value Ref Range Iron level 216 (H) 59 - 158 ug/dL Iron binding capacity 254 200 - 400 ug/dL % Saturation 85.0 (H) 20.0 - 40.0 % Specimen Performing Laboratory Plasma specimen [facility] [address] [address] TB T-SPOT (01/18/2017 10:55 AM) Component Value Ref Range TB T-SPOT SEE NOTE Comment: T-SPOT TUBERCULOSIS Nil Control: 0 Panel A: 0 Panel B: 1 Positive Control: SAT Result:NEGATIVE NOTE: TMTC INDICATES TOO MANY SPOTS TO COUNT SAT INDICATES THE WELL WAS SATURATED RESULTS INTERPRETATION: RESULTS ARE NEGATIVE WHEN (PANEL A-NIL) OR (PANEL B-NIL) <=4 SPOTS, INCLUDING VALUES LESS THAN ZERO. RESULTS ARE POSITIVE WHEN (PANEL A-NIL) OR (PANEL B-NIL) >=8 SPOTS RESULTS ARE BORDERELINE WHEN EITHER (PANEL A-NIL) OR (PANEL B-NIL)=5,6,0R 7. THE TEST IS INVALID WHEN EITHER OF THE FOLLOWING CONDITIONS IS MET: 1.) THE NIL CONTROL HAS >10 SPOTS 2.) THE MITOGEN (POSITIVE CONTROL) HAS <20 SPOTS AND BOTH (PANEL A-NIL) AND (PANEL B-NIL) <=4 SPOTS. M. TUBERCULOSIS INFECTION UNLIKELY, BUT CANNOT BE EXCLUDED ESPECIALLY WHEN: 1. ANY ILLNESS IS CONSISTENT WITH TB DISEASE. 2. LIKELIHOOD OF PROGRESSION TO DISEASE (e.g. DUE TO IMMUNOSUPPRESSION) IS INCREASED. LIMITATIONS: DIAGNOSING OR EXCLUDING TUBERCULOSIS DISEASE, AND ASSESSING THE PROBABILITY OF LTBI, REQUIRES A COMBINATION OF EPIDEMIOLOGICAL, HISTORICAL, MEDICAL, AND DIAGNOSTIC FINDINGS THAT SHOULD BE TAKEN INTO ACCOUNT WHEN INTERPRETING T-SPOT.TB REFER TO THE MOST RECENT CDC GUIDANCE (HTTP: //WWW.CDC.GOV/NCHSTP/TB) FOR DETAILED RECOMMENDATIONS ABOUT DIAGNOSING TB INFECTION (INCLUDING DISEASE) AND SELECTING PERSONS FOR TESTING. 1.) A FALSE NEGATIVE RESULT CAN BE CAUSED BY INCORRECT BLOOD SAMPLE COLLECTION OR IMPROPER HANDLING OF THE SPECIMEN, AFFECTING LYMPHOCYTE FUNCTION 2.) THE PERFORMANCE OF T-SPOT.TB HAS NOT BEEN ADEQUATELY EVALUATED WITH SPECIMENS FROM INDIVIDUALS YOUNGER THANAGE 17 YEARS, IN WOMEN, AND IN PATIENTS WITH HEMOPHILIA. 3-) A FALSE POSITIVE RESULT WAS OBTAINED FOR T-SPOT.TB WHEN TESTED IN SUBJECTS WITH M. XENOPI, M. KANSASII, AND M. GORDONAE.WHILE ESAT-6 AND CFP-10 ANTIGENS ARE ABSENT FROM BCG STRAINS OF M. BOVIS AND FROM MOST ENVIRONMENTAL MYCOBACTERIA, IT IS POSSIBLE THAT A POSITIVE T-SPOT.TB RESULT MAY BE DUE TO INFECTION WITH M. KANSASII, M. SZULGAI, M. GORDONAE, OR M. MARINUM. ALTERNATIVE TESTS WOULD BE REQUIRED IF THESE INFECTIONS ARE SUSPECTED. 4.) A NEGATIVE TEST RESULT DOES NOT EXCLUDE THE POSSIBILITY OF EXPOSURE TO, OR INFECTION WITH, M. TUBERCULOSIS. PATIENTS WITH RECENT EXPOSURE TO TB INFECTED INDIVIDUALS EXHIBITING A NEGATIVE T-SPOT.TB RESULT SHOULD BE CONSIDERED FOR RETESTING WITHIN 6 WEEKS OR IF OTHER RELEVANT CLINICAL SYMPTOMS INDICATE POSSIBLE INFECTION. 5.) A POSITIVE TEST RESULT DOES NOT RULE IN ACTIVE TB DISEASE; OTHER TESTS SHOULD BE PERFORMED TO CONFIRM THE DIAGNOSIS OF ACTIVE TB DISEASE SUCH SPUTUM SMEAR AND CULTURE, PCR AND CHEST RADIOGRAPHY. 6.) T-SPOT.TB TEST HAS NOT BEEN EVALUATED IN SUBJECTS WHO HAVE RECEIVED > 1 MONTH OF ANTI-TB THERAPY. 7. ) REFRIGERATED AND FROZEN SAMPLES ARE NOT RECOMMENDED FOR USE WITH T=SPOT.TB TEST. Performed by: [facility] Molecular Tuberculosis Laboratory [facility] ([id number]) [place], [place] [address] Specimen Performing Laboratory Blood [facility] [address] [place] [address] Single antigen beads (01/18/2017 10:55 AM) Component Value Ref Range Single antigen beads See link below for PDF Lab Report Specimen Performing Laboratory [facility] DEPARTMENT OF PATHOLOGY AND [address] [address] HLA autologous crossmatch, AHG (01/18/2017 10:55 AM) Component Value Ref Range HLA autologous crossmatch See link below for PDF Lab Report Specimen Performing Laboratory [facility] OF PATHOLOGY [address] [address] Estimated GFR (01/18/2017 10:55 AM)Only the most recent of19 resultswithin the time period is included. Component Value Ref Range GFR Non Af Amer 76 mL/min/1.73 m2 GFR Af Amer >90 mL/min/1.73 m2 Comment: Chronic kidney disease: <60 mL/min/1.73m2 Kidney failure: <15 mL/min/1.73m2 The estimated GFR is calculated from the IDMS-traceable Modification of Diet in Renal Disease Equation. The accuracy of the calculation is poor when the creatinine is normal. Calculated values >90 mL/min/1.73m2 are not reported. This equation has not been validated in children (<18 years), women, the elderly (>70 years), or ethnic groups other than Caucasians and Americans. Specimen Performing Laboratory Plasma specimen [facility] DEPARTMENT OF PATHOLOGY AND [address] [address] Hepatitis C antibody (01/18/2017 10:55 AM) Component Value Ref Range Hepatitis C Ab Non-reactive Non-reactive Specimen Performing Laboratory Serum [facility] OF PATHOLOGY AND [address] [address] Cytomegalovirus Ab, IgM (01/18/2017 10:55 AM) Component Value Ref Range Cytomegalovirus Ab, IgM NegativeComment: Negative: CMV IgM antibodies were Negative not detected. Specimen Performing Laboratory Serum [facility] DEPARTMENT OF PATHOLOGY AND [address] [address] Alpha-1 antitrypsin level (01/18/2017 10:55 AM) Component Value Ref Range Alpha-1 antitrypsin 113 90 - 200 mg/dL Specimen Performing Laboratory Plasma specimen [facility] OF PATHOLOGY [address] [address] Hepatitis A antibody IgM (01/18/2017 10:55 AM) Component Value Ref Range Hepatitis A IgM Non-reactive Non-reactive Specimen Performing Laboratory Serum [facility] PATHOLOG[facility] [address] [address] Hepatitis A antibody total (01/18/2017 10:55 AM) Component Value Ref Range Hepatitis A total Ab Reactive (A) Non-reactive Comment: Hepatitis A Total Antibody reactive. Hepatitis A IgM antibody will be performed and reported separately when completed. Specimen Performing Laboratory Serum [facility] [address] [address] Cancer antigen 19-9 (01/18/2017 10:55 AM) Component Value Ref Range CA 19-9 <1 0 - 35 U/mL Comment: The [employer] Robert 8000 CA19-9 immunoassay was used. Results obtained with different assay methods or kits should not be used interchangeably and may be different. Specimen Performing Laboratory Plasma specimen [facility] [address] [address] Anti mitochondria screen (01/18/2017 10:55 AM) Component Value Ref Range Anti mitochondria screen Not Detected Not-Detected Specimen Performing Laboratory Blood [facility] [address] [address] Ceruloplasmin level (01/18/2017 10:55 AM) Component Value Ref Range Ceruloplasmin 20 15 - 30 mg/dL Specimen Performing Laboratory Plasma specimen [facility] DE[facility] OF PATHOLOGY AND [address] [address] Drug new 9, ser/rosemary, scrn w/rflx to conf (01/18/2017 10:55 AM) Component Value Ref Range Amphetamines, s/p, screen Negative Cutoff 30 ng/mL Methamphetamine, s/p, screen Negative Cutoff 30 ng/mL Barbiturates, s/p, screen Negative Cutoff 75 ng/mL Benzodiazepines, s/p, screen Negative Cutoff 75 ng/mL Cocaine, s/p, screen Negative Cutoff 30 ng/mL Methadone, s/p, screen Negative Cutoff 40 ng/mL Opiates, s/p, screen Negative Cutoff 30 ng/mL Oxycodone, s/p, screen Negative Cutoff 30 ng/mL Phencyclidine, s/p, screen Negative Cutoff 15 ng/mL Cannabinoids, s/p, screen Positive Cutoff 30 ng/mL Comment: If the screen is positive, then confirmation by mass spectrometry will be added. Additional charges will apply. Unconfirmed positive may be useful for medical purposes, but does not meet forensic standards. Drug screen comments, serum See Note Comment: INTERPRETIVE INFORMATION: Drug Screen 9 Panel, Serum or Plasma - Immunoassay Screen with Reflex to Mass Spectrometry Confirmation/ Quantitation 1. Methodology: Qualitative Immunoassay Screen 2. Drugs/Drug classes reported as "Positive" are automatically reflexed to mass spectrometry confirmation/quantitation testing. An immunoassay unconfirmed positive screen result may be useful for medical purposes but does not meet forensic standards. 3. The absence of expected drug(s) and/or drug metabolite(s) may indicate non-compliance, inappropriate timing of specimen collection relative to drug administration, poor drug absorption, or limitations of testing. The concentration at which the screening test can detect a drug or metabolite varies within a drug class. Specimens for which drugs or drug classes are detected by the screen are automatically reflexed to a second, more specific technology (mass spectrometry). The concentration value must be greater than or equal to the cutoff to be reported as positive. Interpretive questions should be directed to the laboratory. 4. For medical purposes only; not valid for forensic use. Test developed and characteristics determined by [employer]. See Compliance Statement B: [employer] Performed by [employer], [address] [place] [address] www.[email or web address], Mejia Bennett MD - Lab. Director Specimen Performing Laboratory Blood [facility] [address] [address] Zinc level, serum (01/18/2017 10:55 AM)Only the most recent of2 resultswithin the time period is included. Component Value Ref Range Zinc 44 (L) 60 - 120 ug/dL Comment: INTERPRETIVE INFORMATION: Zinc, Serum or Plasma Circulating zinc concentrations are dependent on albumin status and are depressed with malnutrition. Zinc may also be lowered with infection, inflammation, stress, oral contraceptives, and . Zinc may be elevated with zinc supplementation or fasting. Elevated zinc concentrations may interfere with copper absorption. Test developed and characteristics determined by [employer]. See Compliance Statement B: [employer] Performed by [employer], [address] [place] [address] www.[email or web address], Mejia Bennett MD - Lab. Director Specimen Performing Laboratory Blood [facility] [address] [place] [address] Alpha fetoprotein (01/18/2017 10:55 AM)Only the most recent of3 resultswithin the time period is included. Component Value Ref Range Alpha fetoprotein 2.1 0.0 - 8.3 ng/mL Comment: The Robert 8000 AFP immunoassay was used. Results obtained with different assay methods or kits should not be used interchangeably and may be different. Specimen Performing Laboratory Serum [facility] [address] [place] [address] ABORh - transplant (01/18/2017 10:55 AM) Component Value Ref Range ABO grouping A Rh type POS Specimen Performing Laboratory Blood [facility] [address] [place] [address] Hepatitis B core antibody total (01/18/2017 10:55 AM) Component Value Ref Range Hepatitis B core total Ab Non-reactive Non-reactive Specimen Performing Laboratory Serum [facility] [address] [place] [address] THC metabolite, s/p, quant (01/18/2017 10:55 AM) Component Value Ref Range 53-zou-8-carboxy-THC, s/p, quant 42 ng/mL Comment: INTERPRETIVE INFORMATION: THC Metabolite, Serum or Plasma, Quantitative Methodology: Quantitative Liquid Chromatography-Tandem Mass Spectrometry. Positive cutoff: 5 ng/mL For medical purposes only; not valid for forensic use. The drug analyte detected in this assay, 9-carboxy THC, is a metabolite of usxac-2-zfmszhgkhmdvoxaphpie (THC).Detection of 9-carboxy THC suggests use of, or exposure to, a product containing THC.This test cannot distinguish between prescribed or non-prescribed forms of THC, nor can it distinguish between active or passive use.The plasma half-life for 9-carboxy THC metabolite is estimated to range from 4-12 hours. Test developed and characteristics determined by [employer]. See Compliance Statement B: [email or web address] Performed by [employer], [address] [place] [address] www.[email or web address], Mejia Bennett MD - Lab. Director Specimen Performing Laboratory [facility] [address] [place] [address] Vitamin D 25 hydroxy level (01/18/2017 10:55 AM)Only the most recent of3 resultswithin the time period is included. Component Value Ref Range Vitamin D, 25-hydroxy 14.9 (L) 30.0 - 150.0 ng/mL Comment: This assay reports the sum of 25-hydroxy vitamin D3 and 25-hydroxy vitamin D2. Reference range: 0-17 years: Deficiency: less than 20ng/mL Optimum level: greater than or equal to 20 ng/mL. 18 years and older: Deficiency: less than 20ng/mL Insufficiency: 20-29 ng/mL Optimum Level: 30-80 ng/mL The assay reportable range is 3.4155.9 ng/mL. Levels higher than 150 ng/mL may be associated with toxicity. If toxicity is clinically suspected and the reported result is >155.9 ng/mL,contact lab for alternative methods to obtain a definitivelevel. If separate quantitation of 25-hydroxy vitamin D3 and 25-hydroxy vitamin D2 is needed, please contact lab for alternative methods. Specimen Performing Laboratory Blood [facility] [address] [place] [address] HIV 1, 2 antibody (01/18/2017 10:55 AM) Component Value Ref Range HIV 1, 2 antibody Non-reactive Non-reactive Comment: Starting from May 14 2015, 4th generation HIV screening and confirmation assays are in use at [facility], consistent with the CDC-recommended algorithm. The screening test detects antibodies to HIV-1, HIV-2 and the p24 antigen. Positive screening results will be automatically reflexed to a HIV-1/HIV-2 differentiation assay. Indeterminant HIV-1 results will be further automatically reflexed to a nucleic acid test for detection of acute infection. Western blot will no longer be performed as a confirmation test. For a quick reference guide on the testing algorithm, please refer to: http://stacks.cdc.gov/view/cdc/73102. Specimen Performing Laboratory Serum [facility] PATH[facility] AND [address] [address] Hepatitis B surface antibody (01/18/2017 10:55 AM) Component Value Ref Range Hepatitis B surface Ab Non-reactive Non-reactive Specimen Performing Laboratory Serum [facility] [address] [address] Hepatitis B surface antigen (01/18/2017 10:55 AM) Component Value Ref Range Hepatitis B surface Ag Non-reactive Non-reactive Specimen Performing Laboratory Serum [facility] [address] [address] Cytomegalovirus Ab, IgG (01/18/2017 10:55 AM) Component Value Ref Range Cytomegalovirus Ab, IgG Positive (A) Negative Comment: Positive; IgG antibody to CMV detected which may indicate exposure to CMV infection. Specimen Performing Laboratory Serum [facility] [place] [id number] Partial thromboplastin time, activated (01/18/2017 10:55 AM) Component Value Ref Range PTT 39.9 (H) 23.0 - 36.0 sec Comment: PTT therapeutic range for unfractionated heparin is 61.0-112.0 seconds which corresponds to Anti-Xa 0.3-0.7 U/ml. Specimen Performing Laboratory Blood [facility] [address] [address] Prothrombin time with INR (01/18/2017 10:55 AM)Only the most recent of19 resultswithin the time period is included. Component Value Ref Range Prothrombin time 21.9 (H) 12.0 - 15.0 sec INR 1.9 Comment: The International Normalized Ratio (INR) is a therapeutic monitoring tool for patients who are stable on oral anticoagulant therapy. An INR of 2.0-3.0 is suggested for deep vein thrombosis/pulmonary embolism. Specimen Performing Laboratory Blood [facility] [address] [address] Fibrinogen (01/18/2017 10:55 AM) Component Value Ref Range Fibrinogen 144 (L) 200 - 450 mg/dL Specimen Performing Laboratory Blood [facility] [address] [address] CBC with platelet and differential (01/18/2017 10:55 AM)Only the most recent of20 resultswithin the time period is included. Component Value Ref Range WBC 3.72 (L) 4.50 - 11.00 k/uL RBC 3.13 (L) 4.40 - 6.00 m/uL HGB 9.8 (L) 14.0 - 18.0 g/dL HCT 31.2 (L) 41.0 - 51.0 % MCV 99.7 82.0 - 100.0 fL MCH 31.3 27.0 - 34.0 pg MCHC 31.4 31.0 - 37.0 g/dL RDW - SD 57.6 (H) 37.0 - 55.0 fL MPV 12.7 8.8 - 13.2 fL Platelet count 66 (L) 150 - 400 k/uL Nucleated RBC 0.50 /100 WBC Neutrophils 72.1 (H) 39.0 - 69.0 % Lymphocytes 16.9 (L) 25.0 - 45.0 % Monocytes 8.9 0.0 - 10.0 % Eosinophils 0.8 0.0 - 5.0 % Basophils 0.8 0.0 - 1.0 % Immature granulocytes 0.5Comment: "Immature granulocytes" 0.0 - 1.0 % (promyelocytes, myelocytes, metamyelocytes) Specimen Performing Laboratory Blood [facility] AND [facility] [address] [place] [address] C-reactive protein (01/18/2017 10:55 AM)Only the most recent of2 resultswithin the time period is included. Component Value Ref Range CRP 0.53 (H) 0.00 - 0.50 mg/dL Specimen Performing Laboratory Plasma specimen [facility] AND [facility] [address] [place] [address] KATHY (01/18/2017 10:55 AM) Component Value Ref Range KATHY screen Not Detected Not-Detected Specimen Performing Laboratory Blood [facility] [address] [place] [address] Thyroid stimulating hormone (01/18/2017 10:55 AM)Only the most recent of2 resultswithin the time period is included. Component Value Ref Range TSH 1.58 0.27 - 4.20 uIU/mL Specimen Performing Laboratory Plasma specimen [facility] AND [facility] [address] [place] [address] Prostate specific antigen (01/18/2017 10:55 AM) Component Value Ref Range PSA 0.4 0.0 - 4.0 ng/mL Comment: The ROBERT 8000 PSA immunoassay was used. Results obtained with different assay methods or kits should not be used interchangeably and may be different. Specimen Performing Laboratory Plasma specimen [facility] [address] [address] Prealbumin level (01/18/2017 10:55 AM) Component Value Ref Range Prealbumin 12 (L) 16 - 32 mg/dL Specimen Performing Laboratory Serum [facility] [address] [address] Phosphorus level (01/18/2017 10:55 AM)Only the most recent of12 resultswithin the time period is included. Component Value Ref Range Phosphorus 3.3 2.4 - 4.5 mg/dL Specimen Performing Laboratory Plasma specimen [address] [address] Magnesium level (01/18/2017 10:55 AM)Only the most recent of12 resultswithin the time period is included. Component Value Ref Range Magnesium 1.4 (L) 1.6 - 2.6 mg/dL Specimen Performing Laboratory Plasma specimen [address] [address] Hemoglobin A1c (01/18/2017 10:55 AM)Only the most recent of2 resultswithin the time period is included. Component Value Ref Range Hemoglobin A1C 4.3 4.0 - 5.6 % Comment: HbA1c cutoffs for diagnosing diabetes: 4.0% - 5.6%=normal 5.7% - 6.4%=increased risk for diabetes (prediabetes) >=6.5%=diabetes Goals for glycemic control (ADA 2016) < 7.0%Target for non adults with diabetes. More or less stringent targets may be appropriate for individual patients. <7.5% Target for Children and adolescents with type 1 diabetes. Specimen Performing Laboratory Blood [facility] [address] [address] GGT (01/18/2017 10:55 AM) Component Value Ref Range GGT 219 (H) 0 - 59 U/L Specimen Performing Laboratory Plasma specimen [facility] [address] [address] Ferritin level (01/18/2017 10:55 AM)Only the most recent of2 resultswithin the time period is included. Component Value Ref Range Ferritin level 24 (L) 30 - 400 ng/mL Specimen Performing Laboratory Plasma specimen [facility] AND [address] [address] Carcinoembryonic antigen (CEA) (01/18/2017 10:55 AM) Component Value Ref Range CEA 17.5 (H) 0.0 - 3.8 ng/mL Comment: Reference range for heavy smokers:0.0 - 5.5 ng/mL The AIRAM Robert 8000 CEA immunoassay was used. Results obtained with different assay methods or kits should not be used interchangeably and may be different. Specimen Performing Laboratory Serum [facility] [address] [address] Alcohol level, blood (01/18/2017 10:55 AM) Component Value Ref Range Alcohol None Detected mg/dL Comment: Normal None Detected Legal Intoxication in [place]80 mg/dL (0.08%) - Whole Blood Toxic Riljewsbqlubc260 mg/dL (0.2%) Potentially Stqno561 - 500 mg/dL (0.35 - 0.5%) Alcohol percent None Detected % Specimen Performing Laboratory Plasma specimen [facility] [address] [address] Hepatic function panel (01/18/2017 10:55 AM)Only the most recent of7 resultswithin the time period is included. Component Value Ref Range Albumin 3.2 (L) 3.5 - 5.0 g/dL Total bilirubin 7.0 (H) 0.0 - 1.2 mg/dL Bilirubin direct 2.2 (H) 0.0 - 0.3 mg/dL Alkaline phosphatase 121 40 - 129 U/L Protein 8.5 (H) 6.3 - 8.3 g/dL Comment: [place] 4.6-7.0 g/dL 1 week 4.4-7.6 g/dL 7 months-1year5.1-7.3 g/dL 1-2 years5.6-7.5 g/dL >3 years6.0-8.0 g/dL 18-150 6.3-8.3 g/dL ALT 11 5 - 50 U/L AST 55 (H) 10 - 50 U/L Specimen Performing Laboratory Plasma specimen [facility] [address] [place] [address] Basic metabolic panel (01/18/2017 10:55 AM)Only the most recent of7 resultswithin the time period is included. Component Value Ref Range Sodium 143 135 - 148 mEq/L Potassium 3.8 3.5 - 5.0 mEq/L Chloride 103 98 - 112 mEq/L CO2 23 (L) 24 - 31 mEq/L Anion gap 17 (H) 7 - 15 mEq/L Comment: Starting from May , anion gap calculation no longer incorporates potassium. Please note the change. BUN 19 6 - 20 mg/dL Creatinine 1.0 0.7 - 1.2 mg/dL Glucose 94 65 - 99 mg/dL Calcium 8.9 8.3 - 10.2 mg/dL Specimen Performing Laboratory Plasma specimen [facility] AND [address] [address] ECG 12 lead (01/18/2017 9:44 AM)Only the most recent of2 resultswithin the time period is included. Component Value Ref Range Ventricular rate 61 Atrial rate 61 KS interval 126 QRSD interval 86 QT interval 484 QTC interval 487 P axis 1 56 QRS axis 1 -10 T wave axis -16 EKG impression Normal sinus rhythm-Nonspecific ST abnormality-Prolonged QT- Abnormal ECG-In automated comparison with ECG of 17-NOV-2016 19:55,-T wave inversion now evident in Inferior leads-Nonspecific T wave abnormal ity, improved in Anterolateral leads- Specimen Performing Laboratory [facility] [address] [place] [address] Smear review (12/11/2016 5:51 AM)Only the most recent of17 resultswithin the time period is included. Component Value Ref Range Platelet slide review Mkd decreased (A) Anisocytosis Moderate Polychromasia Moderate Specimen Performing Laboratory [facility] [address] [place] [address] Vancomycin level, random (12/11/2016 5:51 AM) Component Value Ref Range Vancomycin, random 26.0 ug/mL Specimen Performing Laboratory Serum [facility] AND [facility] [address] [place] [address] Comprehensive metabolic panel (12/11/2016 5:51 AM)Only the most recent of13 resultswithin the time period is included. Component Value Ref Range Sodium 143 135 - 148 mEq/L Potassium 3.7 3.5 - 5.0 mEq/L Chloride 105 98 - 112 mEq/L CO2 22 (L) 24 - 31 mEq/L Anion gap 16 (H) 7 - 15 mEq/L Comment: Starting from May , anion gap calculation no longer incorporates potassium. Please note the change. BUN 21 (H) 6 - 20 mg/dL Creatinine 1.3 (H) 0.7 - 1.2 mg/dL Glucose 78 65 - 99 mg/dL Calcium 7.8 (L) 8.3 - 10.2 mg/dL Protein 5.7 (L) 6.3 - 8.3 g/dL Comment: [place] 4.6-7.0 g/dL 1 week 4.4-7.6 g/dL 7 months-1year5.1-7.3 g/dL 1-2 years5.6-7.5 g/dL >3 years6.0-8.0 g/dL 18-150 6.3-8.3 g/dL Albumin 3.6 3.5 - 5.0 g/dL A/G ratio 1.7 0.7 - 3.8 Alkaline phosphatase 82 40 - 129 U/L AST 37 10 - 50 U/L ALT 8 5 - 50 U/L Total bilirubin 4.4 (H) 0.0 - 1.2 mg/dL Specimen Performing Laboratory Plasma specimen [facility] [address] [place] [address] Vancomycin level, trough (12/10/2016 5:45 AM) Component Value Ref Range Vancomycin, trough 32.0 (HH) 10.0 - 20.0 ug/mL Comment: Therapeutic Ranges: Peak 30.0 - 40.0 ug/mL Rzoooo13.0 - 20.0 ug/mL Specimen Performing Laboratory Serum [facility] [address] [place] [address] US Abdominal Paracentesis Imaging (12/09/2016 5:27 PM)Only the most recent of5 resultswithin the time period is included. Specimen Performing Laboratory [facility] [address] [place] [address] Narrative EXAMINATION:US ABDOMINAL PARACENTESIS IMAGING CLINICAL HISTORY: Ascitesfor diagnostic and therapeutic purposes COMPARISON:None. TECHNIQUE: The procedure's risks, benefits, and alternatives were discussed with the patient and written, informed consent was obtained. Using ultrasound guidance, a site for needle entry was selected and the overlying skin was prepped and draped in the usual sterile fashion. 1% buffered lidocaine was used for local anesthesia. A 5 [place] Yueh catheter was inserted into the peritoneal cavity and 5 L of peritoneal fluid was removed. The fluid was sent to the lab for the requested studies.The patient tolerated the procedure without difficulty and was discharged to the radiology recovery area for monitoring prior to discharge. EBL: None. COMPLICATIONS: None. SPECIMENS: As above. ASSISTANTS: None. IMPRESSION: Uncomplicated ultrasound-guided diagnostic and therapeutic paracentesis. [facility]-[id number] Procedure Note [facility], Radiology Results Incoming - 12/09/2016 5:40 PM CDT EXAMINATION: US ABDOMINAL PARACENTESIS IMAGING CLINICAL HISTORY: Ascites for diagnostic and therapeutic purposes COMPARISON:None. TECHNIQUE: The procedure's risks, benefits, and alternatives were discussed with the patient and written, informed consent was obtained. Using ultrasound guidance, a site for needle entry was selected and the overlying skin was prepped and draped in the usual sterile fashion. 1% buffered lidocaine was used for local anesthesia. A 5 [place] Yueh catheter was inserted into the peritoneal cavity and 5 L of peritoneal fluid was removed. The fluid was sent to the lab for the requested studies. The patient tolerated the procedure without difficulty and was discharged to the radiology recovery area for monitoring prior to discharge. EBL: None. COMPLICATIONS: None. SPECIMENS: As above. ASSISTANTS: None. IMPRESSION: Uncomplicated ultrasound-guided diagnostic and therapeutic paracentesis. [facility]-[id number] Transfuse platelets (12/09/2016 5:25 PM)Only the most recent of2 resultswithin the time period is included.Aerobic culture (12/09/2016 5:15 PM)Only the most recent of4 resultswithin the time period is included. Component Value Ref Range Aerobic culture isolate No growth after 3 days. Comment: Specimen Information Specimen Source: Peritoneal fluid Specimen Site: Not otherwise specified Specimen Performing Laboratory Peritoneal fluid - Not otherwise specified [facility] [address] [place] [address], [place] [address] Gram stain (12/09/2016 5:15 PM)Only the most recent of4 resultswithin the time period is included. Component Value Ref Range Gram stain isolate Rare WBC's No organisms seen Comment: Specimen Information Specimen Source: Peritoneal fluid Specimen Site: Not otherwise specified Specimen Performing Laboratory Peritoneal fluid - Not otherwise specified [facility] [address] [address] Anaerobic culture (12/09/2016 5:15 PM)Only the most recent of4 resultswithin the time period is included. Component Value Ref Range Anaerobic culture isolate No anaerobic organisms isolated. Comment: Specimen Information Specimen Source: Peritoneal fluid Specimen Site: Not otherwise specified Specimen Performing Laboratory Peritoneal fluid - Not otherwise specified [facility] [address] [address] Cell count and differential, body fluid (12/09/2016 5:15 PM)Only the most recent of5 resultswithin the time period is included. Component Value Ref Range Misc fluid type Peritoneal Color, fluid Yellow Appearance, fluid Clear RBC, fluid SEE COMMENTComment: 2+ (500 - 10,000 RBC/CMM) /CMM Nucleated cells, fluid 267 /CMM Fluid mononuclear cell See Diff Neutrophils, fluid 5 % Lymphocytes, fluid 27 % Mesothelial cells, fluid 6 % Macrophages, fluid 62 % Specimen Performing Laboratory Fluid [facility] [address] [address] Albumin, misc fluid (12/09/2016 5:15 PM)Only the most recent of4 resultswithin the time period is included. Component Value Ref Range Fluid type Peritoneal Albumin, fluid 1.3 g/dL Comment: Analysis performed on Robert 8000 analyzer. This is not an approved methodology for this specimen type;accuracy and clinical significance uncertain. Specimen Performing Laboratory Fluid [facility] [address] [address] Prepare platelet pheresis, 1 Units (12/09/2016 1:05 PM) Component Value Ref Range Product name Apheresis Platelet ACDA LRIRR #1 Unit number [id number] Product code [id number] Dispense status Transfused Blood expiration date 20161209 Blood type code 6200 Blood type A POSITIVE Specimen Performing Laboratory [facility] [address] [address] Prepare fresh frozen plasma, 1 Units (12/09/2016 1:05 PM)Only the most recent of4 resultswithin the time period is included. Component Value Ref Range Product name Thawed Plasma Unit number [id number] Product code [id number] Dispense status Transfused Blood expiration date 20161212 Blood type code 6200 Blood type A POSITIVE Specimen Performing Laboratory Blood [facility] AND [facility] [address] [place] [address] Type and screen (12/09/2016 1:05 PM)Only the most recent of3 resultswithin the time period is included. Component Value Ref Range ABO grouping A Rh type POS Antibody screen (gel) NEG Specimen Performing Laboratory Blood [facility] AND [address] [address] Bilirubin direct (12/09/2016 5:27 AM)Only the most recent of2 resultswithin the time period is included. Component Value Ref Range Bilirubin direct 2.2 (H) 0.0 - 0.3 mg/dL Specimen Performing Laboratory Plasma specimen [facility] AND [address] [address] XR Chest 1 Vw Portable (12/07/2016 6:15 PM)Only the most recent of2 resultswithin the time period is included. Specimen Performing Laboratory [facility] [address] [place] [address] Narrative EXAMINATION:XR CHEST 1 VW PORTABLE CLINICAL HISTORY:Cardiomyopathy, Fever COMPARISON:11/17/2016 IMPRESSION: 1.The heart is slightly enlarged. 2.There is no evidence pulmonary edema. Discoid atelectatic changes are present in the lingula and right midlung zone. There are no focal consolidations or effusions. 3.Regional skeletal structures are within normal limits. [facility]-[id number] Procedure Note [facility], Radiology Results Incoming - 12/07/2016 6:21 PM CDT EXAMINATION: XR CHEST 1 VW PORTABLE CLINICAL HISTORY: Cardiomyopathy, Fever COMPARISON: 11/17/2016 IMPRESSION: 1. The heart is slightly enlarged. 2. There is no evidence pulmonary edema. Discoid atelectatic changes are present in the lingula and right midlung zone. There are no focal consolidations or effusions. 3. Regional skeletal structures are within normal limits. [facility]-[id number] Gram stain only (12/07/2016 5:13 PM) Component Value Ref Range Gram stain result Few WBC's No organisms seen Comment: Specimen Information Specimen Source: Ascites Fluid Specimen Site: Not otherwise specified Specimen Performing Laboratory Ascitic fluid - Not otherwise specified [facility] [address] [place] [address] Blood culture, aerobic & anaerobic (12/07/2016 5:13 PM)Only the most recent of5 resultswithin the time period is included. Component Value Ref Range Blood culture isolate No growth after 5 days of incubation. Comment: Specimen Information Specimen Source: Fluid Specimen Site: Ascites Specimen Performing Laboratory Ascites [facility] DEPART[facility] OF PATHOLOGY AND [address] [address] Protein, misc fluid (12/07/2016 2:55 PM) Component Value Ref Range Fluid type Ascitic Protein, fluid 2.2 g/dL Comment: Analysis performed on Robert 8000 analyzer. This is not an approved methodology for this specimen type;accuracy and clinical significance uncertain. Specimen Performing Laboratory Fluid [facility] DEPARTMENT OF PATHOLOGY AND [facility] [address] [place] [address] Urinalysis screen and microscopy, with reflex to culture (12/07/2016 11:18 AM) Component Value Ref Range Specimen site Clean catch Color, UA Cielo Appearance, UA Clear Specific gravity, UA 1.015 1.001 - 1.035 pH, UA 6.0 5.0 - 8.5 Protein, UA Negative Negative Glucose, UA Negative Negative Ketones, UA Negative Negative Bilirubin, UA Negative Negative Blood, UA Negative Negative Nitrite, UA Negative Negative Urobilinogen, UA <2.0 <2.0 Leukocyte esterase, UA Negative Negative Epithelial cells, UA 1 /HPF WBC, UA 1 0 - 1 /HPF RBC, UA <1 0 - 1 /HPF Bacteria, UA None seen None seen Yeast, UA None seen Yeast with pseudohyphae, UA None seen Hyaline casts, UA 7 /LPF Specimen Performing Laboratory Urine [facility] DEPART[facility] OF PATHOLOGY AND [facility] [address] [place] [address] Urine culture (12/07/2016 11:18 AM) Component Value Ref Range Urine culture SEE COMMENTComment: Bacteriuria screen negative. Specimen Performing Laboratory [facility] DEPARTMENT OF PATHOLOGY AND [facility] [address] [place] [address] Lipase level (12/07/2016 11:18 AM) Component Value Ref Range Lipase 111 (H) 13 - 60 U/L Specimen Performing Laboratory Plasma specimen [facility]PART[facility] OF PATHOLOGY AND [facility] [address] [place] [address] Amylase level (12/07/2016 11:18 AM) Component Value Ref Range Amylase 35 13 - 53 U/L Specimen Performing Laboratory Plasma specimen [facility] OF PATHOLOGY AND [facility] [address] [place] [address] Reticulocyte count (11/27/2016 4:40 AM)Only the most recent of7 resultswithin the time period is included. Component Value Ref Range Retic %, auto 1.8 0.5 - 2.1 % Retic absolute, auto 0.0481 0.0220 - 0.1260 m/uL Specimen Performing Laboratory [facility] OF PATHOLOGY AND [facility] [address] [place] [address] Ammonia level (11/27/2016 4:40 AM)Only the most recent of6 resultswithin the time period is included. Component Value Ref Range Ammonia 55 16 - 60 umol/L Specimen Performing Laboratory Blood [facility] [address] [address] Sedimentation rate (11/26/2016 4:37 AM) Component Value Ref Range Sedimentation rate 17 (H) 0 - 10 mm/hr Specimen Performing Laboratory [facility]OLOGY AND [facility] [address] [place] [address] B natriuretic peptide (11/26/2016 4:37 AM)Only the most recent of7 resultswithin the time period is included. Component Value Ref Range BNP 875 (H) 0 - 100 pg/mL Specimen Performing Laboratory Blood [facility] PATH[facility] [address] [address] Cv clinical lab specialist procedure (11/25/2016 6:28 PM) Specimen Performing Laboratory [facility] [address] [place] [address] Narrative Right heart filling pressure is normal. Pulmonary hypertension is mild. Wedge pressure is normal. Cardiac output is increased. Intracardiac shunt is not detected. Other significant cardiac findings of note: RA 6 mmHg RV 47/6 mmHg PA 47/18 (28) mmHg PCW 14 mmHg Thermo CO 12.03 L/min Vidhi CO 13.11 L/min. Normal coronary arteries. Moderate sedation was administered with physician supervisionof patient consciousness, respiration, Oxygen saturation and CO2 monitoring, beginning at17:40 ( time)for a total period of 47 minutes. I was physically present for the critical portions of all procedures performed during this episode of care. MRI Abdomen W Wo Contrast (11/24/2016 8:18 PM) Specimen Performing Laboratory [facility] [address] [facility] [place] [address] Narrative EXAMINATION:MRI ABDOMEN W WO CONTRAST CLINICAL HISTORY:cirrhosisrule out HCC or Portal thrombosis TECHNIQUE: Multiplanar multisequence MR images of the abdomen were obtained pre - and post dynamic intravenous administration of Gadolinium.. COMPARISON:MRI abdomen, 03/13/2013 IMPRESSION: 1.Motion artifact degrades image quality and decreases sensitivity of exam. 2.Liver is cirrhotic with small cysts. The hypervascular nodule in the hepatic dome seen previously is not discretely visualized on this exam, resolved versus obscured by bowel gas by the motion artifact. No suspicious hepatic lesion is detected on this motion limited study. 3.A small likely enhancing partially exophytic 1.2 cm nodule in the interpolar right kidney, series 8 image 181 is suspicious for renal cell cancer. 4.No acute portal venous system thrombosis. Numerous periportal collaterals are present, with recanalization of the periumbilical vein. Numerous coronary vein and gastroesophageal varices, perisplenic collaterals, and numerous mesenteric venous collaterals as well related to portal hypertension from cirrhosis. A spleno renal shunt may also be present. 5.Cholecystectomy. Bile ducts, pancreas demonstrate nothing unusual. The spleen is enlarged without focal lesion. Adrenal glands, abdominal aorta and left kidney demonstrate nothing unusual. 6.Small amount of perihepatic and perisplenic ascites. Upper normal periaortic lymph nodes likely reactive. 7.Regional marrow signal show no suspicious lesion. SUMMARY: Significantly motion limited study. No evidence of hepatocellular carcinoma is detected. No acute portal venous system thrombosis. Small enhancing right renal neoplasm, suspicious for renal cell cancer. [facility]-[id number] Procedure Note Interface, Radiology Results [facility] - 11/24/2016 11:42 PM CDT EXAMINATION: MRI ABDOMEN W WO CONTRAST CLINICAL HISTORY: cirrhosis rule out HCC or Portal thrombosis TECHNIQUE: Multiplanar multisequence MR images of the abdomen were obtained pre - and post dynamic intravenous administration of Gadolinium. . COMPARISON: MRI abdomen, 03/13/2013 IMPRESSION: 1. Motion artifact degrades image quality and decreases sensitivity of exam. 2. Liver is cirrhotic with small cysts. The hypervascular nodule in the hepatic dome seen previously is not discretely visualized on this exam, resolved versus obscured by bowel gas by the motion artifact. No suspicious hepatic lesion is detected on this motion limited study. 3. A small likely enhancing partially exophytic 1.2 cm nodule in the interpolar right kidney, series 8 image 181 is suspicious for renal cell cancer. 4. No acute portal venous system thrombosis. Numerous periportal collaterals are present, with recanalization of the periumbilical vein. Numerous coronary vein and gastroesophageal varices, perisplenic collaterals, and numerous mesenteric venous collaterals as well related to portal hypertension from cirrhosis. A spleno renal shunt may also be present. 5. Cholecystectomy. Bile ducts, pancreas demonstrate nothing unusual. The spleen is enlarged without focal lesion. Adrenal glands, abdominal aorta and left kidney demonstrate nothing unusual. 6. Small amount of perihepatic and perisplenic ascites. Upper normal periaortic lymph nodes likely reactive. 7. Regional marrow signal show no suspicious lesion. SUMMARY: Significantly motion limited study. No evidence of hepatocellular carcinoma is detected. No acute portal venous system thrombosis. Small enhancing right renal neoplasm, suspicious for renal cell cancer. [facility]-[id number] Vitamin B1 level, whole blood (11/24/2016 5:30 AM) Component Value Ref Range Vitamin B1 59 (L) 70 - 180 nmol/L Comment: INTERPRETIVE INFORMATION: Vitamin B1, Whole Blood This assay measures the concentration of thiamine diphosphate (TDP), the primary active form of vitamin B1. Approximately 90 percent of vitamin B1 present in whole blood is TDP. Thiamine and thiamine monophosphate, which comprise the remaining 10 percent, are not measured. Test developed and characteristics determined by [employer]. See Compliance Statement B: [employer] Performed by [employer], [address] [place] [id number] www.[employer], Mejia Bennett MD - Lab. Director Specimen Performing Laboratory Plasma specimen [facility] [address] [place] [address] Prepare cryoprecipitate, 10 Units (11/24/2016 5:30 AM) Component Value Ref Range Product name Pooled Cryoprecipitate Thawed Unit number [id number] Product code [id number] Dispense status Transfused Blood expiration date 20161125 Blood type code 6200 Blood type A POSITIVE Product name Pooled Cryoprecipitate Thawed Unit number [id number] Product code [id number] Dispense status Transfused Blood expiration date 20161125 Blood type code 6200 Blood type A POSITIVE Specimen Performing Laboratory Blood [facility]OM[facility] MEDICINE [address] [place] [address] CT Head Wo Contrast (11/23/2016 7:18 PM) Specimen Performing Laboratory [facility] [address] [place] [address] Narrative Study: CT HEAD WO CONTRAST History:CONFUSION DELERIUMALTERED LOCUNEXPLAINED COMPARISON:None. TECHNIQUE: Multiple axial CT images of the head obtained without IV contrast. CT imaging was performed with iterative reconstruction technique and/or automated exposure control to reduce radiation dose. FINDINGS: Parenchymal volume is mildly diffusely decreased.. There are changes of chronic small vessel ischemic disease There is no acute hemorrhage, midline shift, hydrocephalus, edema, or extra-axial collections. .The visualized paranasal sinuses are well aerated.The mastoid air cells are well aerated. No destructive calvarial lesions are seen. The visualized orbits are unremarkable. IMPRESSION: No acute intracranial hemorrhage or mass effect. [facility]-[id number] Procedure Note [facility], Radiology Results Incoming - 11/23/2016 7:30 PM CDT Study: CT HEAD WO CONTRAST History:CONFUSION DELERIUM ALTERED LOC UNEXPLAINED COMPARISON:None. TECHNIQUE: Multiple axial CT images of the head obtained without IV contrast. CT imaging was performed with iterative reconstruction technique and/or automated exposure control to reduce radiation dose. FINDINGS: Parenchymal volume is mildly diffusely decreased.. There are changes of chronic small vessel ischemic disease There is no acute hemorrhage, midline shift, hydrocephalus, edema, or extra-axial collections. .The visualized paranasal sinuses are well aerated. The mastoid air cells are well aerated. No destructive calvarial lesions are seen. The visualized orbits are unremarkable. IMPRESSION: No acute intracranial hemorrhage or mass effect. [facility]-[id number] CT Chest Wo Contrast (11/20/2016 5:06 PM) Specimen Performing Laboratory [facility] [address] [place] [address] Narrative EXAMINATION: CT CHEST WO CONTRAST CLINICAL HISTORY: High resolution CT chestILD protocol. Patient with PAH. TECHNIQUE: Multiple axial images were obtained from the lung apices to the lung bases without the administration of intravenous contrast. The lack of intravenous contrast reduces the sensitivity of detecting solid organ disease and evaluating vasculature. High-resolution, prone, expiratory, coronal, and sagittal reformats were obtained. CT imaging was performed with iterative reconstruction technique and/or automated exposure control to reduce radiation dose. COMPARISON: None. IMPRESSION: Heart size is markedly enlarged. There is coronary artery calcification. The aorta is mildly ectatic. The pulmonary artery is 4.2 cm which is dilated and compatible with pulmonary arterial hypertension. There is no enlarged mediastinal lymph node. Subsegmental areas of bilateral lower lobe atelectasis are present which are mild. Two round areas of groundglass opacity in the anterior left upper lobe are seen measuring 2.0 and 2.3 cm, respectively. These may be infectious, inflammatory, or neoplastic. Recommend short-term follow-up to evaluate for resolution. The liver contour is nodular compatible with cirrhosis. The spleen is moderately enlarged measuring 16.2 cm. A small to moderate amount of pelvic ascites is present. Numerous upper abdominal varices are compatible with portal hypertension. Suspicious osseous lesion is not seen. Procedure Note Interface, Radiology Results Incoming - 11/20/2016 11:59 PM CDT EXAMINATION: CT CHEST WO CONTRAST CLINICAL HISTORY: High resolution CT chest ILD protocol. Patient with PAH. TECHNIQUE: Multiple axial images were obtained from the lung apices to the lung bases without the administration of intravenous contrast. The lack of intravenous contrast reduces the sensitivity of detecting solid organ disease and evaluating vasculature. High-resolution, prone, expiratory, coronal, and sagittal reformats were obtained. CT imaging was performed with iterative reconstruction technique and/ or automated exposure control to reduce radiation dose. COMPARISON: None. IMPRESSION: Heart size is markedly enlarged. There is coronary artery calcification. The aorta is mildly ectatic. The pulmonary artery is 4.2 cm which is dilated and compatible with pulmonary arterial hypertension. There is no enlarged mediastinal lymph node. Subsegmental areas of bilateral lower lobe atelectasis are present which are mild. Two round areas of groundglass opacity in the anterior left upper lobe are seen measuring 2.0 and 2.3 cm, respectively. These may be infectious, inflammatory, or neoplastic. Recommend short-term follow-up to evaluate for resolution. The liver contour is nodular compatible with cirrhosis. The spleen is moderately enlarged measuring 16.2 cm. A small to moderate amount of pelvic ascites is present. Numerous upper abdominal varices are compatible with portal hypertension. Suspicious osseous lesion is not seen. US Abdominal Doppler (11/20/2016 2:00 PM)Only the most recent of2 resultswithin the time period is included. Specimen Performing Laboratory [facility] [address] [place] [address] Narrative EXAMINATION:US ABDOMINAL DOPPLER CLINICAL HISTORY:venous thrombosis COMPARISON:None. TECHNIQUE: Milan scale, color Doppler and spectral waveform analysis of the hepatic and upper abdominal vasculature. IMPRESSION: PORTAL VEIN:Main portal vein measures 14 mm, with velocity of 44.8 cm/sec. Main portal vein is patent with hepatopetal flow. Left portal vein demonstrates hepatofugal flow. Right portal vein is not visualized.. HEPATIC VEINS:The middle and left hepatic veins are patent and demonstrate acceptable waveforms. Right hepatic vein is not visualized. HEPATIC ARTERIES:The proper, right, and left hepatic arteries are identified with appropriate waveforms. INFERIOR VENA CAVA: Patent. SUPERIOR MESENTERIC VEIN: Not visualized. SPLENIC ARTERY AND VEIN:Splenic artery and vein are identified and are patent. Spleen is enlarged, measuring 17.4 cm in length [facility]-[id number] Procedure Note Interface, Radiology Results Incoming - 11/20/2016 2:41 PM CDT EXAMINATION: US ABDOMINAL DOPPLER CLINICAL HISTORY: venous thrombosis COMPARISON: None. TECHNIQUE: Milan scale, color Doppler and spectral waveform analysis of the hepatic and upper abdominal vasculature. IMPRESSION: PORTAL VEIN: Main portal vein measures 14 mm, with velocity of 44.8 cm/sec. Main portal vein is patent with hepatopetal flow. Left portal vein demonstrates hepatofugal flow. Right portal vein is not visualized.. HEPATIC VEINS: The middle and left hepatic veins are patent and demonstrate acceptable waveforms. Right hepatic vein is not visualized. HEPATIC ARTERIES: The proper, right, and left hepatic arteries are identified with appropriate waveforms. INFERIOR VENA CAVA: Patent. SUPERIOR MESENTERIC VEIN: Not visualized. SPLENIC ARTERY AND VEIN: Splenic artery and vein are identified and are patent. Spleen is enlarged, measuring 17.4 cm in length [facility]-[id number] Body fluid consult (11/20/2016 11:34 AM) Component Value Ref Range Body fluid consult Done Comment: Mesothelial cells and histiocytes. No malignancy seen. Reviewed by Duyen Barry M.D. Specimen Performing Laboratory Fluid [facility]Y AND GENOMIC MEDICINE [address] [place], [place] [id number] [place] Renal Doppler (11/19/2016 10:49 PM) Specimen Performing Laboratory [facility] [address] [place] [address] Narrative EXAMINATION:US RENAL DOPPLER CLINICAL HISTORY:Patient with ESTEBAN TECHNIQUE: Examination includes a full duplex Doppler scan of the renal vessels (real-time B mode grayscale, Doppler spectral analysis, and Doppler color flow imaging). COMPARISON:None. FINDINGS: Right renal arterial waveforms demonstrate normal systolic upstrokes and good enddiastolic flow. The right renal vein is patent. Left renal arterial waveforms demonstrate normal systolic upstrokes and good end diastolic flow. The left renal vein is patent. Other findings: Small pleural effusion. IMPRESSION: Normal renal Doppler ultrasound examination. [facility]-[id number] Procedure Note Interface, Radiology Results Incoming - 11/19/2016 11:28 PM CDT EXAMINATION: US RENAL DOPPLER CLINICAL HISTORY: Patient with ESTEBAN TECHNIQUE: Examination includes a full duplex Doppler scan of the renal vessels (real-time B mode grayscale, Doppler spectral analysis, and Doppler color flow imaging). COMPARISON: None. FINDINGS: Right renal arterial waveforms demonstrate normal systolic upstrokes and good end diastolic flow. The right renal vein is patent. Left renal arterial waveforms demonstrate normal systolic upstrokes and good end diastolic flow. The left renal vein is patent. Other findings: Small pleural effusion. IMPRESSION: Normal renal Doppler ultrasound examination. [facility]-[id number] Pv duplex venous lower extremity (11/19/2016 11:19 AM) Specimen Performing Laboratory [facility] [address] [place] [address] Narrative Vascular Ultrasound Laboratory Lower Extremity Venous Report [address] [place] [address].Name:QUENTIN YARBROUGH.ID:[id number] .Date: 11/19/2016 Refer.MD:DEON GLOVER MD Exam Time: 10:44:00 AM Study Type:LE Venous DOBAge:1960,56YSex: MALE Sonogrphr: Franchesca Lima. Stat.:Inpatient Room:[facility] TapeVol: SD, CPT - 4: 99655 Echo Event ID:[id number] Order ID:[id number] Reason for Study:Bilateral leg swelling. Liver cirrhosis. Race:C SUMMARY: DUPLEX SCAN OBSERVATIONS Deep VeinsSuperficial Veins RightLeft RightLeft EIV GSV (prox) NormalNormal CFV Normal Normal (above knee) Femoral Normal Normal GSV (dist) Normal Normal Profunda Normal Normal (below knee) Popliteal Normal Normal PT (prox) Normal NormalSSV Not Visualized Not Visualized PT (dist) Normal Normal Peroneal Normal Normal RIGHT:There is normal compressibility with no evidence of echogenic material noted within the lumen of the visualized veins. Colorflow and Doppler signals are normal. LEFT:There is normal compressibility with no evidence of echogenic material noted within the lumen of the visualized veins. Colorflow and Doppler signals are normal. PRELIMINARY FINDINGS 1. No evidence of venous thrombosis of the visualized veins. PHYSICIAN INTERPRETATION 1.Venous examination of the both lower extremities demonstrates no evidence of venous thrombosis. Signed 11/19/2016 12:02 PM Harinder Gasca MD Procedure Note Interface, Radiology Results In - 11/19/2016 12:02 PM CDT Vascular Ultrasound Laboratory Lower Extremity Venous Report [address] [place] [address] Pat.Name: QUENTIN YARRBOUGH Pat.ID: [id number] .Date: 11/19/2016 Refer.MD: DEON GLOVER MD Exam Time: 10:44:00 AM Study Type:LE Venous Age: 10 1960,56Y Sex: MALE Sonogrphr: Jayla Brady RVT Pat. Stat.:Inpatient Room: [address] Vol: SD, CPT - 4: [address]684 Echo Event ID:[id number] Order ID: [id number] Reason for Study:Bilateral leg swelling. Liver cirrhosis. Race: C SUMMARY: DUPLEX SCAN OBSERVATIONS Deep Veins Superficial Veins Right Left Right Left EIV GSV (prox) Normal Normal CFV Normal Normal (above knee) Femoral Normal Normal GSV (dist) Normal Normal Profunda Normal Normal (below knee) Popliteal Normal Normal PT (prox) Normal Normal SSV Not Visualized Not Visualized PT (dist) Normal Normal Peroneal Normal Normal RIGHT: There is normal compressibility with no evidence of echogenic material noted within the lumen of the visualized veins. Colorflow and Doppler signals are normal. LEFT: There is normal compressibility with no evidence of echogenic material noted within the lumen of the visualized veins. Colorflow and Doppler signals are normal. PRELIMINARY FINDINGS 1. No evidence of venous thrombosis of the visualized veins. PHYSICIAN INTERPRETATION 1. Venous examination of the both lower extremities demonstrates no evidence of venous thrombosis. Signed 11/19/2016 12:02 PM Harinder Gasca MD LDH (11/19/2016 4:00 AM) Component Value Ref Range LDH 155 87 - 225 U/L Specimen Performing Laboratory Plasma specimen [facility] [address] [place] [address] Folate level (11/19/2016 4:00 AM) Component Value Ref Range Folate 2.5 (L) 4.8 - 24.2 ng/mL Specimen Performing Laboratory Serum [facility] PATHOLOGY [facility] GENOMIC MEDIC[facility] [address] [place] [address] Vitamin B12 level (11/19/2016 4:00 AM) Component Value Ref Range Vitamin B12 1,948 (H) 211 - 946 pg/mL Comment: Significant overlap exists between normal and deficiency states. However, most patients with deficiencies will have Serum B12 <200 pg/mL. Specimen Performing Laboratory Serum [facility]Y [facility] GENOMIC [facility]IC[facility] [address] [place] [address] Lipid panel (11/19/2016 4:00 AM) Component Value Ref Range Cholesterol 86 <200 mg/dL Triglycerides 75 <150 mg/dL HDL cholesterol 24 (L) >40 mg/dL LDL cholesterol 46Comment: Result obtained by direct LDL <100 mg/dL measurement Lipid panel interpretation SeeBelow Comment: Total Cholesterol (mg/dL) <200 Desirable 173-105Gwidknkmgh-csrz >=240High Triglycerides (mg/dL) <150 Normal 301-344Cqqgnnsbbq-etcr 200-499High >=500Very high HDL Cholesterol (mg/dL) <40Low (male) <40Low (female) LDL Cholesterol (mg/dL) <100 Optimal 100-129Near or above optimal [id number]-[id number] 160-189High >=190Very high Risk Catergories that modify LDL goals. Risk CatergoriesLDL goal (mg/dL) CHD and CHD risk equivalent<100 (10-year risk >20%) Multiple (2+) risk factors <130 (10-year risk=<20%) 0-1 risk factors <160 (<10-year risk) Defining levels of lipids in metabolic syndrome Triglycerides>=150 mg/dL HDL Cholesterol Men<40 mg/dL Women<40 mg/dL Non-HDL cholesterol is a second target for therapy in persons with high triglycerides (>=200 mg/dL) Specimen Performing Laboratory Plasma specimen [facility]OM[facility]IC[facility] [address] [place] [address] [place] Lung Ventilation Perfusion (11/18/2016 3:51 PM) Specimen Performing Laboratory [facility] [address] [place] [address] Narrative PROCEDURE:AK LUNG VENTILATION PERFUSION INDICATION:Acute PE. COMPARISON:Chest x-ray dated 11/17/2016. TECHNIQUE:Planar ventilation images were acquired after the inhalation of 15 mCi of Xe-133 gas. Planar perfusion images were acquired after the IV adminstration of 5 mCi of Tc-99m MAA. FINDINGS:Ventilation images demonstrate decreased ventilation to the lung periphery. Washout images demonstrate no gas trapping.Perfusion images demonstrate small defects in the lung periphery.No mismatched defects.Comparison chest x-ray did not show a confluent infiltrate. IMPRESSION: 1.Very low probability for PE. [facility]-[id number] Procedure Note [facility], Radiology Results Incoming - 11/18/2016 4:04 PM CDT PROCEDURE: NM LUNG VENTILATION PERFUSION INDICATION: Acute PE. COMPARISON: Chest x-ray dated 11/17/2016. TECHNIQUE: Planar ventilation images were acquired after the inhalation of 15 mCi of Xe-133 gas. Planar perfusion images were acquired after the IV adminstration of 5 mCi of Tc-99m MAA. FINDINGS: Ventilation images demonstrate decreased ventilation to the lung periphery. Washout images demonstrate no gas trapping. Perfusion images demonstrate small defects in the lung periphery. No mismatched defects. Comparison chest x-ray did not show a confluent infiltrate. IMPRESSION: 1. Very low probability for PE. [id number] Echocardiogram complete w contrast and 3D if needed (11/18/2016 12:15 PM) Specimen Performing Laboratory [facility] [address] [id number] Narrative Echocardiography Report [address] [place] [address] Pat.Name:QUENTIN YARBROUGH.ID:[id number] St.Date: 11/18/2016 Refer.MD:PHONG GRIFFITHS MD Exam Time: 11:30:00 AM Study Type:Routine Echo Height:72inWeight:208lb BSA: 2.17 m2 DOBAge:1960,56Y Sex: MALEBP:106/57 HR:80 bpm Sonogrphr: Ariella Pettit RDCS Pat. Stat.:Inpatient Room:[address] Study Status:Final Echo Event ID:[id number] Order ID:[id number] Reason for Study:Pulmonary Hypertension History / Clinical:Pulmonary Hypertension, Shortness of Breath, Liver Cirrhosis Procedures:2D Echo, Colorflow Doppler, Strain, Intravenous Saline Contrast Race:C SUMMARY: Delayed contrast appears in the left atrium after 10 cardiac cycles consistent with transpulmonary shunting. Severe pulmonary hypertension. Normal LV and RV function. FINDINGS: LV: LV size is normal. There is mild concentric LV hypertrophy. LVsystolic function is normal. Overall wall motion is normal.Estimated EF is 65-69% Septal motion is paradoxical secondaryto RV systolic pressure overload. RV: RV size is moderately enlarged. RV systolic function is normal. LA: LA volume is mildly enlarged. RA: RA volume is normal. AO: Aortic root diameter is normal. JOAQUIN: Trace posterior pericardial effusion. Cntrst: Delayed contrast appears in the left atrium after 10 cardiac cyclesconsistent with transpulmonary shunting. AV: Normal trileaflet aortic valve. Focal calcification of AV leaflets. MV: No structural MV abnormalities noted. PV: No structural PV abnormalities noted. A trace of pulmonic regurgitation. TV: No structural TV abnormalities noted. Mild to moderate tricuspidregurgitation Cunha: LV relaxation is normal. LV filling pressure is normal. Other:Estimated PA systolic pressure is 65 mmHg, assuming a mean RAPof 10 mmHg. MEASUREMENTS: 2D Parasternal Long [place] LVOT 2 cmIVSd 1.2 cm LA Ds4.7 cmLVPWd1.4 cm Ao Rtd 3.8 cmIndex 1.7 cm/m LV Rvjz340.6 g(122-174) LVIDd5.5 cmIndex 2.5 cm/m LVM Swyce283.6 g/m2 LVIDs3.6 cmRWT0.5 LV%fs 35.1 % LV EF SinglePlane LV Ad 46.2 cm2(9.5-22.3) LVESV 58.4 ml Index26.9 ml/m RNGXX413.8 ml (65-193) Index86.5 ml/m LV SV129.3 ml LV As 22.4 cm2(4-11.6) LV EF 68.9 %(63-77) LA Sng Plane LA Area 26.4 cm2(8.8-23.4) LA Vol82.4 ml Index38 ml/m LA LngAx 7.1 cm RA Sng Plane RA Area 19.6 cm2(8.3-19.5) RA Vol54.3 ml Index25 ml/m RA LngAx 6.2 cm DOPPLER LVOT For Flow LVOT Area3.1 cm2 LVOT SV 103.3 ml IWSOafLzu329.2 cm/sHR77.6 bpm LVOTpkPG 9.9 mmHgLVOT CO8 l/min LVOTmnPG 5.3 mmHgLVOT CI 3.7 l/m/m2 LVOT TVI32.9 cm Signed 11/18/2016 06:48 PM Stephen Cheney M.D. Procedure Note Interface, Radiology Results In - 11/18/2016 6:48 PM CDT Echocardiography Report [address] [address] Pat.Name: QUENTIN YARBROUGH.ID: [id number] St.Date: 11/18/2016 Refer.MD: PHONG GRIFFITHS MD Exam Time: 11:30:00 AM Study Type:Routine Echo Height: 72in Weight: 208lb BSA: 2.17 m2 Age: 10 1960,56Y Sex: MALE BP: 106/57 HR: 80 bpm Sonogrphr: Ariella Pettit RDCS Pat. Stat.:Inpatient Room: [address] Study Status:Final Echo Event ID:[id number] Order ID: [id number] Reason for Study:Pulmonary Hypertension History / Clinical:Pulmonary Hypertension, Shortness of Breath, Liver Cirrhosis Procedures:2D Echo, Colorflow Doppler, Strain, Intravenous Saline Contrast Race: C SUMMARY: Delayed contrast appears in the left atrium after 10 cardiac cycles consistent with transpulmonary shunting. Severe pulmonary hypertension. Normal LV and RV function. FINDINGS: LV: LV size is normal. There is mild concentric LV hypertrophy. LV systolic function is normal. Overall wall motion is normal. Estimated EF is 65-69% Septal motion is paradoxical secondary to RV systolic pressure overload. RV: RV size is moderately enlarged. RV systolic function is normal. LA: LA volume is mildly enlarged. RA: RA volume is normal. AO: Aortic root diameter is normal. JOAQUIN: Trace posterior pericardial effusion. Cntrst: Delayed contrast appears in the left atrium after 10 cardiac cycles consistent with transpulmonary shunting. AV: Normal trileaflet aortic valve. Focal calcification of AV leaflets. MV: No structural MV abnormalities noted. PV: No structural PV abnormalities noted. A trace of pulmonic regurgitation. TV: No structural TV abnormalities noted. Mild to moderate tricuspid regurgitation Cunha: LV relaxation is normal. LV filling pressure is normal. Other: Estimated PA systolic pressure is 65 mmHg, assuming a mean RAP of 10 mmHg. MEASUREMENTS: 2D Parasternal Long [place] LVOT 2 cm IVSd 1.2 cm LA Ds 4.7 cm LVPWd 1.4 cm Ao Rtd 3.8 cm Index 1.7 cm/m LV Mass 298.6 g (122-174) LVIDd 5.5 cm Index 2.5 cm/m LVM Index 137.6 g/m2 LVIDs 3.6 cm RWT 0.5 LV%fs 35.1 % LV EF SinglePlane LV Ad 46.2 cm2 (9.5-22.3) LVESV 58.4 ml Index 26.9 ml/m LVEDV 187.8 ml (65-193) Index 86.5 ml/m LV SV 129.3 ml LV As 22.4 cm2 (4-11.6) LV EF 68.9 % (63-77) LA Sng Plane LA Area 26.4 cm2 (8.8-23.4) LA Vol 82.4 ml Index 38 ml/m LA LngAx 7.1 cm RA Sng Plane RA Area 19.6 cm2 (8.3-19.5) RA Vol 54.3 ml Index 25 ml/m RA LngAx 6.2 cm DOPPLER LVOT For Flow LVOT Area 3.1 cm2 LVOT SV 103.3 ml LVOTpkVel 157.2 cm/s HR 77.6 bpm LVOTpkPG 9.9 mmHg LVOT CO 8 l/min LVOTmnPG 5.3 mmHg LVOT CI 3.7 l/m/m2 LVOT TVI 32.9 cm Signed 11/18/2016 06:48 PM Stephen Cheney M.D. T4 (11/18/2016 5:10 AM) Component Value Ref Range T4 6.2 4.5 - 11.7 ug/dL Specimen Performing Laboratory Plasma specimen [facility]PART[facility] OF PATH[facility] AND [facility] [address] [place] [id number] Ionized calcium (11/18/2016 4:00 AM) Component Value Ref Range pH 7.48 Ionized calcium 0.99 (L) 1.11 - 1.32 mmol/L Specimen Performing Laboratory Plasma specimen [facility]PART[facility] OF PATHOLOGY AND [facility] [address] [place] [id number] Hepatitis acute panel (11/17/2016 8:50 PM) Component Value Ref Range Hepatitis A IgM Non-reactive Non-reactive Hepatitis B core IgM Non-reactive Non-reactive Hepatitis B surface Ag Non-reactive Non-reactive Hepatitis C Ab Non-reactive Non-reactive Specimen Performing Laboratory Serum [facility] OF [facility] [address] [place] [phone] Urinalysis, automated with microscopy (11/17/2016 8:50 PM) Component Value Ref Range Color, UA Cielo Appearance, UA Clear Specific gravity, UA 1.011 1.001 - 1.035 pH, UA 5.0 5.0 - 8.5 Protein, UA Negative Negative Glucose, UA Negative Negative Ketones, UA Negative Negative Bilirubin, UA Negative Negative Blood, UA Negative Negative Nitrite, UA Negative Negative Urobilinogen, UA 2.0 (A) <2.0 Leukocyte esterase, UA Negative Negative WBC, UA 1 0 - 1 /HPF RBC, UA <1 0 - 1 /HPF Bacteria, UA Few None seen Hyaline casts, UA 18 /LPF Yeast, UA None seen Yeast with pseudohyphae, UA None seen Specimen Performing Laboratory Urine [facility]PARTMENT OF PATHOLOGY [facility] GENOMIC [facility] [address] [place] [id number] Lactic acid level (11/17/2016 8:50 PM) Component Value Ref Range Lactic acid 3.2 (H) 0.5 - 2.2 mmol/L Specimen Performing Laboratory Plasma specimen [facility]PARTMENT OF PATHOLOGY AND GENOMIC [facility]IC[facility] [address] [place] [id number] XR Abdomen 1 Vw Portable (11/17/2016 7:40 PM) Specimen Performing Laboratory [facility] [address] [place] [address] Narrative Examination:XR ABDOMEN 1 VW PORTABLE Clinical history:"Distention" Comparison: None IMPRESSION:The bowel gas pattern is nonspecific.Surgical clips are present in the right upper quadrant. The imaged bones appear to be within normal limits. [facility]-[id number] Procedure Note Interface, Radiology Results Incoming - 11/17/2016 8:29 PM CDT Examination: XR ABDOMEN 1 VW PORTABLE Clinical history: "Distention" Comparison: None IMPRESSION: The bowel gas pattern is nonspecific. Surgical clips are present in the right upper quadrant. The imaged bones appear to be within normal limits. [facility]-[id number] Echocardiogram complete w contrast and 3D if needed (07/28/2016 2:05 PM) Specimen Performing Laboratory [facility] [address] [place] [address] Narrative Echocardiography Report [address] [place] [address] Pat.Name:QUENTIN YARBROUGH Pat.ID:[id number] .Date: 07/28/2016 Refer.MD:DORIS HANDY MD Exam Time: 1:24:00 PMStudy Type:Routine Echo Height:72inWeight:220lb BSA: 2.22 m2 DOBAge:1960,56Y Sex: MALEBP:124/65 HR:76 bpm Sonogrphr: Ariella Pettit RDCS Pat. Stat.:OutpatientStudy Status:Final Echo Event ID:[id number] Order ID:[id number] Reason for Study:Pulmonary Hypertension - Re-Evaluation of known pulmonary hypertension if change in clinical status or cardiac exam or to guide therapy History / Clinical:Pulmonary Hypertension, Shortness of Breath, Liver Cirrhosis Procedures:2D Echo, Colorflow Doppler, 3D Echo, Strain Race:C SUMMARY: TAPSE25 mm S' 18 cm/sec eccentricity indexnormal RVOT RW Notch no FINDINGS: LV: LV size is normal. LV function is normal. Overall wall motionis normal. Estimated EF is 65-69% RV: RV size is moderately enlarged. RV function is normal. LA: LA volume is moderately enlarged. RA: RA volume is upper limits of normal. AO: Aortic root diameter is normal. JOAQUIN: No pericardial effusion. AV: No structural AV abnormalities noted. MV: No structural MV abnormalities noted. PV: No structural PV abnormalities noted. TV: No structural TV abnormalities noted. Mild tricuspid regurgitation Cunha: Diastolic dysfunction Grade I (Mild): Impaired relaxation withnormal LV filling pressures. Other:Estimated PA systolic pressure is 48 mmHg, assuming a mean RAPof 5 mmHg. MEASUREMENTS: 2D Parasternal Long [place] LVOT 2 cmAo An2 cm LVIDd5.8 cmIndex 2.6 cm/m Ao Rtd 3.3 cm Index1.5 cm/m LVIDs3.2 cm LV Lomn271.3 g(122-174) LV%fs 44.5 % LVM Index 107.8 g/m2 IVSd 1 cmRWT0.4 LVPWd1 cm LA Sng Plane LA Area 27.3 cm2(8.8-23.4) LA Vol93.8 ml Index42.3 ml/m LA LngAx 6.5 cm RA Sng Plane RA Area 25.6 cm2(8.3-19.5) RA Vol76.3 ml Index34.4 ml/m RA LngAx 7.4 cm DOPPLER LVOT Stroke Vol LVOT 2 cmLVOT CO7.5 l/min LVOT TVI33.3 cmLVOT CI3.4 l/m/m2 LVOT Tm315 gryjYF54 bpm LVOT SV104.7 ml Signed 07/29/2016 07:37 PM Irina Braswell M.D. Procedure Note Interface, Radiology Results In - 07/29/2016 7:37 PM CDT Echocardiography Report [address] [place] [address] Pat.Name: QUENTIN YARBROUGH.ID: [id number] .Date: 07/28/2016 Refer.MD: DORIS HANDY MD Exam Time: 1:24:00 PM Study Type:Routine Echo Height: 72in Weight: 220lb BSA: 2.22 m2 Age: 10 1960,56Y Sex: MALE BP: 124/65 HR: 76 bpm Sonogrphr: Ariella Pettit RDCS Pat. Stat.:Outpatient Study Status:Final Echo Event ID:[id number] Order ID: [id number] Reason for Study:Pulmonary Hypertension - Re-Evaluation of known pulmonary hypertension if change in clinical status or cardiac exam or to guide therapy History / Clinical:Pulmonary Hypertension, Shortness of Breath, Liver Cirrhosis Procedures:2D Echo, Colorflow Doppler, 3D Echo, Strain Race: C SUMMARY: TAPSE 25 mm S' 18 cm/sec eccentricity index normal RVOT RW Notch no FINDINGS: LV: LV size is normal. LV function is normal. Overall wall motion is normal. Estimated EF is 65-69% RV: RV size is moderately enlarged. RV function is normal. LA: LA volume is moderately enlarged. RA: RA volume is upper limits of normal. AO: Aortic root diameter is normal. JOAQUIN: No pericardial effusion. AV: No structural AV abnormalities noted. MV: No structural MV abnormalities noted. PV: No structural PV abnormalities noted. TV: No structural TV abnormalities noted. Mild tricuspid regurgitation Cunha: Diastolic dysfunction Grade I (Mild): Impaired relaxation with normal LV filling pressures. Other: Estimated PA systolic pressure is 48 mmHg, assuming a mean RAP of 5 mmHg. MEASUREMENTS: 2D Parasternal Long [place] LVOT 2 cm Ao An 2 cm LVIDd 5.8 cm Index 2.6 cm/m Ao Rtd 3.3 cm Index 1.5 cm/m LVIDs 3.2 cm LV Mass 239.3 g (122-174) LV%fs 44.5 % LVM Index 107.8 g/m2 IVSd 1 cm RWT 0.4 LVPWd 1 cm LA Sng Plane LA Area 27.3 cm2 (8.8-23.4) LA Vol 93.8 ml Index 42.3 ml/m LA LngAx 6.5 cm RA Sng Plane RA Area 25.6 cm2 (8.3-19.5) RA Vol 76.3 ml Index 34.4 ml/m RA LngAx 7.4 cm DOPPLER LVOT Stroke Vol LVOT 2 cm LVOT CO 7.5 l/min LVOT TVI 33.3 cm LVOT CI 3.4 l/m/m2 LVOT Tm 315 msec HR 72 bpm LVOT SV 104.7 ml Signed 07/29/2016 07:37 PM Irina Braswell M.D. COPY(IES) SENT TO: (06/11/2016 9:19 AM) Component Value Ref Range Copies/mL Comment: SHREE DEVINE MD [id number] [facility] [address] [place] [address] Specimen Performing Laboratory [facility] Narrative FASTING:YES after 05/11/2016 Insurance Payer Benefit Plan / Group Subscriber ID Type Phone Address BCBS BCBS OUT OF STATE xxxxxxxxxxxxxxx PPO QUENTIN YARBROUGH Transplant Self 1960 Home: [address] [phone] [place] [address]
[2017-05-12] MEDS ORDERED: ONDANSETRON 4 MG/2 ML VIAL ONE (18:28)
[2017-05-12] MEDS ORDERED: PANTOPRAZOLE 40 MG INJ ONE (18:28)
[2017-05-12 18:35] LABS: Absolute Monocytes 0.6 K/uL (0.1-1.3); Absolute Neutrophil 8.8 K/uL (1.8-8.0); Basophils % 0.4 % (0-1.3); Hematocrit 26.8 % (39.6-49.0); Lymphocytes % 9.9 % (15.3-44.8); MCH 29.5 pg (27.0-35.0); MCV 90.4 fL (80-100); MPV 10.3 fL (7.6-11.3); RBC Red Blood Cell Count 2.96 M/uL (4.33-5.43)
[2017-05-12] MEDS ORDERED: OCTREOTIDE ACETATE 100 MCG/ML ONE ×2 (18:37→18:47)
[2017-05-12 18:46] LABS: Protime INR 2.13
[2017-05-12] MEDS ORDERED: THIAMINE 200 MG/2 ML INJ ONE (18:46)
[2017-05-12] MEDS ORDERED: VITAMIN K (ADULT) 10 MG/ML ONE (18:46)
[2017-05-12 18:47] LABS: Bicarbonate 24 mEq/L (21-31); Glucose Level 124 mg/dL (65-120); Lipase 18 U/L (22-51); Potassium 3.5 mEq/L (3.6-5.0); Sodium Level 140 mEq/L (135-145)
[2017-05-12 18:55] LABS: ALT/SGPT 37 IU/L (10-60); AST/SGOT 165 IU/L (10-42); Albumin 2.3 g/dL (3.2-5.5); Alkaline Phosphatase 68 IU/L (42-121); BUN Blood Urea Nitrogen 37 mg/dL (6-20); Bilirubin Direct 2.7 mg/dL (0-0.2); Creatine Phosphokinase 104 IU/L (22-269); Glomerular Filtration Rate 61 mL/min (=/>90)
[2017-05-12 18:56] LABS: Magnesium 1.4 mg/dL (1.8-2.5)
[2017-05-12] MEDS ORDERED: NA CHLORIDE 0.9% 1,000 ML ONE (18:56)
[2017-05-12 18:57] LABS: CKMB Creatine Kinase MB 2.1 ng/ml (0.3-4.0)
[2017-05-12 18:58] LABS: Salicylates Level < 4.0 mg/dl (<30)
[2017-05-12 18:59] LABS: Alcohol Serum/Plasma < 10 mg/dl
[2017-05-12 19:00] LABS: Bilirubin Total 7.4 mg/dL (0.3-1.2)
[2017-05-12] MEDS ORDERED: OCTREOTIDE 500 MCG in NA CHLORIDE 0.9% 500 ML IV SCH (19:00)
[2017-05-12] MEDS ORDERED: PANTOPRAZOLE INJ 80 MG in NA CHLORIDE 0.9% 250 ML IV SCH (19:00)
[2017-05-12] MEDS ORDERED: PROMETHAZINE 25 MG/ML VIAL ONE (19:12)
--- NOTE | 2017-05-12 19:12 | ER ---
Nurse's Notes [facility] Name: Quentin Yarbrough Age: 57 yrs Sex: Male : 1960 Arrival Date: 05/12/2017 Time: 17:59 Bed 4 Private MD: Diagnosis: Alcoholic cirrhosis of liver;Gastrointestinal hemorrhage, unspecified-upper;Encephalopathy, unspecified;Hypomagnesemia;Hypokalemia;Coagulation defect, unspecified Presentation: 05/12 18:00 Presenting complaint: EMS states: pt was complaining of upper abd pain that started sg this morning, called his who was at work, when the arrived at home she found the patient in coffee ground emesis, pt groggy but aa\T\ox3 at this time. Transition of care: patient was not received from another setting of care. Onset of symptoms was May 12, 2017. Care prior to arrival: Medication(s) given: Normal saline infusion, 300 IV initiated. 18 GA, in the right antecubital area. 18:00 Method Of Arrival: EMS: [facility] sg 18:00 Acuity: TWILA 3 sg Historical: - Allergies: 18:03 No Known Allergies; sg - PMHx: 18:03 Cirrhosis; Hypertension; Seizures; sg - Immunization history:: Adult Immunizations unknown. - Social history:: Smoking status: Patient/guardian denies using tobacco, Patient uses alcohol, on a daily basis. Screenin:00 Abuse screen: Denies threats or abuse. Denies injuries from another. Nutritional sg screening: No deficits noted. Tuberculosis screening: No symptoms or risk factors identified. Never had TB. Fall Risk None identified. Assessment: 18:04 General: Appears in no apparent distress. comfortable, ill, unkempt, well developed, sg well nourished, Behavior is cooperative, drowsy. Pain: Complains of pain in epigastric area and right upper quadrant. Neuro: Level of Consciousness is awake, obeys commands, lethargic, Oriented to person, place, situation, Economic Research Assistant are equal bilaterally Speech is slurred. Cardiovascular: Heart tones S1 S2 present Capillary refill is brisk in bilateral fingers Patient's skin is warm and dry. Chest pain is denied. Respiratory: Airway is patent Respiratory effort is even, unlabored, Respiratory pattern is regular, symmetrical. GI: Abdomen is round distended, Bowel sounds present X 4 quads. Reports upper abdominal pain, nausea, vomiting. : No signs and/or symptoms were reported regarding the genitourinary system. EENT: No signs and/or symptoms were reported regarding the EENT system. Derm: Skin is intact, is healthy with good turgor, Skin is jaundiced, Skin temperature is cool. Musculoskeletal: No signs and/or symptoms reported regarding the musculoskeletal system. 18:50 Reassessment: pt actively vomiting at this time, pt sitting upright in bed, emesis is sg black in color, malodorous, notified pt status, new orders received, suction at HOB, pt medicated, see EMAR. GI: Pt is actively vomiting. 19:00 Reassessment: RECD REPORT FROM BRAULIO CH. 57YO WM P/W COFFEE GROUND EMESIS AND bp ASCITES, H/O ETOHISM AND CIRRHOSIS. TRANSFUSION PENDING, PT VS STABLE ON MONITOR. 19:30 Reassessment: FIRST PRBC REQUESTED, FFP THAWING. PER MD, BLOOD PRODUCTS TO BE bp ADMINISTERED EXPEDITIOUSLY. 20:00 Reassessment: FIRST UNIT PRBC AND FFP STARTED, CO-SIGNED NIESHA CH. TRANSFER ON HOLD FOR bp COMPLETION OF FIRST UNITS, GIVEN AT RAPID RATE. NO S/S OF ADVERSE RXN AT THIS TIME. 20:30 Reassessment: 2ND FFP STARTED, CO-SIGNED NIESHA CH. PT SHOWING NO S/S TRANSFUSION RXN. bp 21:16 Reassessment: EMS AT B/S FOR TRANSPORT. bp Vital Signs: 18:00 BP 141 / 85; Pulse 101 MON; Resp 15; Temp 98.3; Pulse Ox 100% on R/A; Pain 6/10; sg 18:00 Weight 111.13 kg (R); sg 19:00 BP 121 / 84; Pulse 97 MON; Resp 18 S; Pulse Ox 93% on R/A; sg 20:00 BP 141 / 98; Pulse 98; Resp 20; Temp 98.5; Pulse Ox 97% ; bp 20:30 BP 122 / 82; Pulse 93; Resp 19; Temp 98.4; Pulse Ox 100% ; bp ED Course: 17:59 Patient arrived in ED. sg 18:00 Satish Smith, RN is Primary Nurse. sg 18:00 Initial lab(s) drawn, by ED staff. Maintain EMS IV. Dressing intact. Good blood return sg noted. Site clean \T\ dry. Gauge \T\ site: 18 G RAC. 18:00 Initial lab(s) drawn, by ED staff, sent to lab. First set of blood cultures drawn by sg physician, T\T\S collected, blood band applied to patient. Patient maintains SpO2 saturation greater than 95% on room air. 18:03 Triage completed. sg 18:03 Miguel Davis MD is Attending Physician. delvin 18:04 Arm band placed on. sg 18:20 EKG done, by ED staff, reviewed by Miugel Davis MD. jb1 18:20 IV established Left Jugular, performed by . sg 18:27 X-ray completed. Portable x-ray completed in exam room. Patient tolerated procedure mh1 well. 18:28 XRAY Chest (1 view) In Process Unspecified. EDMS 19:00 Patient has correct armband on for positive identification. Placed in gown. Bed in low bp position. Call light in reach. Side rails up X2. bookmobile librarian on. Pulse ox on. NIBP on. 19:40 Urine collected: Perez catheter specimen, ismael colored. Perez cath inserted, using cb2 sterile technique, 16 Fr., by nh, balloon inflated, to gravity drainage, clamped. urine specimen collected. returned ismael urine. Patient tolerated well. 19:42 Aries Bliss, RN is Primary Nurse. bp 19:42 Inserted saline lock: 18 gauge in left antecubital area, using aseptic technique. bp Inserted saline lock: 20 gauge in right hand, using aseptic technique. Patient transferred, IV remains in place. 20:54 Report given to [facility] SICU BED 31 . bp Administered Medications: 18:21 Drug: NS 0.9% 500 ml Route: IV; Rate: bolus; Site: right antecubital; sg 21:27 Follow up: IV Status: Completed infusion bp 18:23 Drug: ProTONIX 80 mg Route: IVP; Site: right antecubital; sg 21:40 Follow up: Response: No adverse reaction bp 18:35 Drug: ProTONIX 8 mg/hr Route: IV; Rate: 25 ml/hr; Site: left jugular; sg 21:28 Follow up: IV Status: Infusion continued upon transfer bp 18:45 Drug: SandoSTATIN 50 mcg Route: IV; Rate: per protocol; Site: right antecubital; sg 21:27 Follow up: IV Status: Infusion continued upon transfer bp 18:45 Drug: Thiamine 100 mg Route: IV; Rate: bolus; Site: right antecubital; sg 20:46 Follow up: IV Status: Completed infusion bp 18:45 Drug: NS 0.9% 1000 ml Route: IV; Rate: 125 ml/hr; Site: right antecubital; sg 20:18 Follow up: IV Status: Infusion continued upon transfer bp 18:50 Drug: SandoSTATIN 50 mcg/h Route: IV; Rate: calculated rate; Site: right antecubital; sg 21:28 Follow up: IV Status: Infusion continued upon transfer bp 18:50 Drug: Phenergan 6.25 mg Route: IVP; Site: right antecubital; sv 19:15 Follow up: Response: Nausea is decreased bp 18:55 Drug: Phenergan 6.25 mg Route: IVP; Site: right antecubital; sg 19:16 Follow up: Response: Nausea is decreased bp 19:00 Drug: Vitamin K1 10 mg Route: Sub-Q; Site: right upper arm; sg 20:46 Follow up: Response: No adverse reaction bp 19:05 Not Given (Duplicate Order): NS 0.9% 1000 ml IV at 125 ml/hr continuous delvin 19:07 Drug: Magnesium Sulfate 2 grams Route: IVPB; Infused Over: 2 hrs; Site: right sg antecubital; 20:17 Follow up: IV Status: Completed infusion bp 19:30 Drug: NS 0.9% 500 ml Route: IV; Rate: bolus; Site: left antecubital; bp 20:17 Follow up: IV Status: Completed infusion bp 19:30 Drug: Potassium Chloride 20 mEq Route: IV; Rate: per protocol; Site: right antecubital; bp 20:18 Follow up: IV Status: Infusion continued upon transfer bp 19:50 Drug: Tylenol Suppository 650 mg Route: WV; bp 20:18 Follow up: Response: No adverse reaction bp 19:50 Drug: Benadryl 12.5 mg Route: IVP; Site: left antecubital; bp 20:19 Follow up: Response: No adverse reaction bp 20:30 Drug: Lasix 20 mg Route: IVP; Site: left jugular; bp 20:45 Follow up: Response: No adverse reaction bp Outcome: 19:12 ER care complete, transfer ordered by MD. hargrove 21:25 Transferred by ground EMS to [facility], Transfer form completed. X-rays bp sent w/ patient. 21:25 Condition: stable 21:25 Instructed on the need for transfer. 21:41 Patient left the ED. bp Signatures: Dispatcher [employer] EDGarrison Nascimento1 Tess Umana RN RN Satish Simon RN RN sg Anderson, Corey, MD MD cha Harvey, Martha [facility] Dudley Goncalves Brian, RN RN bp
--- NOTE | 2017-05-12 19:13 | EDPHYS ---
Physician Documentation [facility] Name: Quentin Yarbrough Age: 57 yrs Sex: Male : 1960 Arrival Date: 05/12/2017 Time: 17:59 Bed 4 Private MD: ED Physician Miguel Davis HPI: 05/12 18:23 This 57 yrs old Male presents to ER via EMS with complaints of Vomiting. delvin 18:23 The patient presents to the emergency department with nausea, vomiting, that is delvin intermittent, described as coffee ground in nature. Onset: The symptoms/episode began/occurred just prior to arrival, today. Possible causes: cirrhosis, etoh. The symptoms are aggravated by nothing. The symptoms are alleviated by nothing. Associated signs and symptoms: Pertinent positives: belching, GI bleeding, nausea, vomiting. Severity of symptoms: At their worst the symptoms were mild moderate. The patient has experienced similar episodes in the past, a few times. Historical: - Allergies: 18:03 No Known Allergies; sg - PMHx: 18:03 Cirrhosis; Hypertension; Seizures; sg - Immunization history:: Adult Immunizations unknown. - Social history:: Smoking status: Patient/guardian denies using tobacco, Patient uses alcohol, on a daily basis. ROS: 18:24 Neck: Negative for injury, pain, and swelling, Back: Negative for injury and pain, delvin Neuro: Negative for headache, weakness, numbness, tingling, and seizure, Psych: Negative for depression, anxiety, suicide ideation, homicidal ideation, and hallucinations, Endocrine: Negative for neck swelling, polydipsia, polyuria, polyphagia, and marked weight changes. 18:24 Constitutional: Positive for fatigue, malaise. 18:24 Eyes: Positive for icterus. 18:24 ENT: Positive for rhinorrhea. 18:24 Cardiovascular: Positive for palpitations. 18:24 Respiratory: Negative for cough, shortness of breath. 18:24 Abdomen/GI: Positive for nausea and vomiting, vomiting, abdominal cramps, hematemesis. 18:24 Back: Negative for injury or acute deformity, decreased range of motion. 18:24 MS/extremity: 18:24 Skin: Positive for jaundice, pallor, diffusely. Exam: 18:24 Head/Face: Normocephalic, atraumatic. Neck: Trachea midline, no thyromegaly or masses delvin palpated, and no cervical lymphadenopathy. Supple, full range of motion without nuchal rigidity, or vertebral point tenderness. No Meningismus. Respiratory: Lungs have equal breath sounds bilaterally, clear to auscultation and percussion. No rales, rhonchi or wheezes noted. No increased work of breathing, no retractions or nasal flaring. MS/ Extremity: Pulses equal, no cyanosis. Neurovascular intact. Full, normal range of motion. Neuro: Awake and alert, GCS 15, oriented to person, place, time, and situation. Cranial nerves II-XII grossly intact. Motor strength 5/5 in all extremities. Sensory grossly intact. Cerebellar exam normal. Normal gait. Psych: Awake, alert, with orientation to person, place and time. Behavior, mood, and affect are within normal limits. 18:24 Constitutional: The patient appears in obvious distress, mildly distressed. 18:24 ENT: Nose: nasal drainage, that is clear, Mouth: Oral mucosa: dry, Tongue: displays stomatitis, Posterior pharynx: is normal, no acute changes, Dental exam: dental caries, that is mild. 18:24 Cardiovascular: Rate: tachycardic, Rhythm: regular, Pulses: Pulses are 4+ in bilateral radial, brachial, femoral, popliteal, posterior tibial and and dorsalis pedis arteries.. Heart sounds: normal, JVD: is not appreciated. 18:24 Respiratory: the patient does not display signs of respiratory distress, Respirations: normal, Breath sounds: are clear throughout. Vital Signs: 18:00 BP 141 / 85; Pulse 101 MON; Resp 15; Temp 98.3; Pulse Ox 100% on R/A; Pain 6/10; sg 18:00 Weight 111.13 kg (R); sg 19:00 BP 121 / 84; Pulse 97 MON; Resp 18 S; Pulse Ox 93% on R/A; sg 20:00 BP 141 / 98; Pulse 98; Resp 20; Temp 98.5; Pulse Ox 97% ; bp 20:30 BP 122 / 82; Pulse 93; Resp 19; Temp 98.4; Pulse Ox 100% ; bp Procedures: 18:22 Peripheral line: by aseptic technique a peripheral line was placed in the left external delvin jugular vein. MDM: 18:03 Patient medically screened. [facility] 18:22 Data reviewed: vital signs, nurses notes, lab test result(s), EKG, radiologic studies, [facility] plain films. 05/12 18:18 Order name: Basic Metabolic Panel [facility] 05/12 18:18 Order name: BNP [facility] 05/12 18:18 Order name: CBC with Diff [facility] 05/12 18:18 Order name: Ckmb [facility] 05/12 18:18 Order name: CPK [facility] 05/12 18:18 Order name: LFT's [facility] 05/12 18:18 Order name: Magnesium [facility] 05/12 18:18 Order name: PT-INR [facility] 05/12 18:18 Order name: Ptt, Activated; Complete Time: 18:51 [facility] 05/12 18:18 Order name: Troponin (emerg Dept Use Only); Complete Time: 19:01 [facility] 05/12 18:18 Order name: Lipase; Complete Time: 19: [facility] 05/12 18:18 Order name: Type And Screen [facility] 05/12 18:18 Order name: AMMONIA; Complete Time: 18:50 [facility] 05/12 18:18 Order name: Urine Culture [facility] 05/12 18:18 Order name: Acetaminophen; Complete Time: 19:01 [facility] 05/12 18:18 Order name: ETOH Level; Complete Time: 19:01 [facility] 05/12 18:18 Order name: Salicylate; Complete Time: 19:01 [facility] 05/12 18:18 Order name: Urine Drug Screen [facility] 05/12 18:18 Order name: Basic Metabolic Panel; Complete Time: 19:01 [facility] 05/12 18:18 Order name: BNP B-Type Natriuretic Peptide; Complete Time: 19:01 [facility] 05/12 18:18 Order name: CBC with Automated Diff; Complete Time: 18:50 [facility] 05/12 18:18 Order name: CKMB Creatine Kinase MB; Complete Time: 19:01 [facility] 05/12 18:18 Order name: Creatine Phosphokinase; Complete Time: 19:01 [facility] 05/12 18:18 Order name: Liver (Hepatic) Function; Complete Time: 19:01 [facility] 05/12 18:18 Order name: Magnesium; Complete Time: 19: [facility] 05/12 18:18 Order name: Protime (+INR); Complete Time: 18:51 [facility] 05/12 18:52 Order name: Bb Add On bd 05/12 18:59 Order name: Fresh Frozen Plasma [facility] 05/12 18:18 Order name: XRAY Chest (1 view); Complete Time: 19:28 [facility] 05/12 18:18 Order name: EKG; Complete Time: 18:19 [facility] 05/12 18:18 Order name: Cardiac monitoring; Complete Time: 18:19 [facility] 05/12 18:18 Order name: EKG - Nurse/Tech; Complete Time: 18:19 [place]vin 05/12 18:18 Order name: IV Saline Lock; Complete Time: 18:19 [facility] 05/12 18:18 Order name: Labs collected and sent; Complete Time: 18:20 [facility] 05/12 18:18 Order name: O2 Per Protocol; Complete Time: 18:19 delvin 05/12 18:18 Order name: O2 Sat Monitoring; Complete Time: 18:19 [facility] 05/12 18:18 Order name: Urine Dipstick-Ancillary (obtain specimen); Complete Time: 19:41 [facility] 05/12 18:50 Order name: Transfuse; Complete Time: 21:26 [facility] 05/12 18:59 Order name: Packed RBC Leukored -1 EDRI 05/12 19:06 Order name: Perez; Complete Time: 19:40 [facility] 05/12 19:11 Order name: ABO/RH no charge; Complete Time: 19:28 [facility] 05/12 19:36 Order name: IV Saline Lock - Large Bore; Complete Time: 19:44 [facility] 05/12 19:42 Order name: Urine Dipstick--Ancillary (enter results) em1 Administered Medications: 18:21 Drug: NS 0.9% 500 ml Route: IV; Rate: bolus; Site: right antecubital; sg 21:27 Follow up: IV Status: Completed infusion bp 18:23 Drug: ProTONIX 80 mg Route: IVP; Site: right antecubital; sg 21:40 Follow up: Response: No adverse reaction bp 18:35 Drug: ProTONIX 8 mg/hr Route: IV; Rate: 25 ml/hr; Site: left jugular; sg 21:28 Follow up: IV Status: Infusion continued upon transfer bp 18:45 Drug: SandoSTATIN 50 mcg Route: IV; Rate: per protocol; Site: right antecubital; sg 21:27 Follow up: IV Status: Infusion continued upon transfer bp 18:45 Drug: Thiamine 100 mg Route: IV; Rate: bolus; Site: right antecubital; sg 20:46 Follow up: IV Status: Completed infusion bp 18:45 Drug: NS 0.9% 1000 ml Route: IV; Rate: 125 ml/hr; Site: right antecubital; sg 20:18 Follow up: IV Status: Infusion continued upon transfer bp 18:50 Drug: SandoSTATIN 50 mcg/h Route: IV; Rate: calculated rate; Site: right antecubital; sg 21:28 Follow up: IV Status: Infusion continued upon transfer bp 18:50 Drug: Phenergan 6.25 mg Route: IVP; Site: right antecubital; sv 19:15 Follow up: Response: Nausea is decreased bp 18:55 Drug: Phenergan 6.25 mg Route: IVP; Site: right antecubital; sg 19:16 Follow up: Response: Nausea is decreased bp 19:00 Drug: Vitamin K1 10 mg Route: Sub-Q; Site: right upper arm; sg 20:46 Follow up: Response: No adverse reaction bp 19:05 Not Given (Duplicate Order): NS 0.9% 1000 ml IV at 125 ml/hr continuous delvin 19:07 Drug: Magnesium Sulfate 2 grams Route: IVPB; Infused Over: 2 hrs; Site: right sg antecubital; 20:17 Follow up: IV Status: Completed infusion bp 19:30 Drug: NS 0.9% 500 ml Route: IV; Rate: bolus; Site: left antecubital; bp 20:17 Follow up: IV Status: Completed infusion bp 19:30 Drug: Potassium Chloride 20 mEq Route: IV; Rate: per protocol; Site: right antecubital; bp 20:18 Follow up: IV Status: Infusion continued upon transfer bp 19:50 Drug: Tylenol Suppository 650 mg Route: VT; bp 20:18 Follow up: Response: No adverse reaction bp 19:50 Drug: Benadryl 12.5 mg Route: IVP; Site: left antecubital; bp 20:19 Follow up: Response: No adverse reaction bp 20:30 Drug: Lasix 20 mg Route: IVP; Site: left jugular; bp 20:45 Follow up: Response: No adverse reaction bp Disposition: 05/12/17 19:12 Transfer ordered to [facility]. Diagnosis are Alcoholic cirrhosis of liver, Gastrointestinal hemorrhage, unspecified - upper, Encephalopathy, unspecified, Hypomagnesemia, Hypokalemia, Coagulation defect, unspecified. - Reason for transfer: Higher level of care. - Accepting physician is to meth icu. - Condition is Serious. - Problem is new. - Symptoms are unchanged. Signatures: Dispatcher [employer] Tess Rod, RN RN Satish Simon RN RN sg Anderson, Corey, MD MD cha Peltier, Brian, RN RN bp Corrections: (The following items were deleted from the chart) 19:00 18:51 FRESH FROZEN PLASMA+[id number] ordered. EDMS EDMS 19:00 18:51 ABO/RH typing ordered. EDMS EDMS
--- NOTE | 2017-05-12 19:20 | RAD REPORT ---
EXAM DESCRIPTION: [place] Single View05/12/2017 6:40 pm CLINICAL HISTORY: Abdominal pain COMPARISON: none FINDINGS: The lungs appear clear of acute infiltrate. The heart is normal size IMPRESSION: No acute abnormalities displayed
[2017-05-12] MEDS ORDERED: Magnesium Sulfate 2gm IVPB 2 G/50 ML BAG IV ONE (19:22)
[2017-05-12] MEDS ORDERED: KCL 20 MEQ/100 mL IVPB 20 MEQ/100 ML BAG IV ONE (19:37)
[2017-05-12 19:48] LABS: Urine Blood NEGATIVE (NEG); Urine Glucose NEGATIVE (NEG); Urine Protein NEGATIVE (NEG); Urine Specific Gravity 1.025 (1.005-1.030)
[2017-05-12 19:58] LABS: Barbiturates NEGATIVE; Benzodiazepines POSITIVE; Cocaine NEGATIVE; METHAMPHETAM NEGATIVE; Opiates NEGATIVE; Phencyclidine NEGATIVE; THC Cannibis NEGATIVE
[2017-05-12] MEDS ORDERED: FUROSEMIDE 20 MG/ 2ML VIAL ONE (20:06)
[2017-05-12] MEDS ORDERED: ACETAMINOPHEN 650MG/RECT SUPP PR ONE (20:06)
[2017-05-12] MEDS ORDERED: NA CHLORIDE 0.9% 500 ML ONE ×2 (20:07→20:15)
[2017-05-12] MEDS ORDERED: DIPHENHYDRAMINE 50 MG/ML VIAL ONE (20:07)
[2017-05-12 21:59] VITALS: BP 122/82; TEMP 98.4; O2SAT 100
--- NOTE | 2017-05-13 16:30 | EKG ---
Test Date: 2017-05-12 Test Time: 18:16:31 Household Cook: ESTELLE MEASUREMENT RESULTS: Intervals: Rate: 98 AR: 136 QRSD: 82 QT: 404 QTc: 515 [place]: P: 53 AR: 136 QRS: 4 T: 24 INTERPRETIVE STATEMENTS: Normal sinus rhythm Nonspecific ST abnormality Prolonged QT Abnormal ECG Compared to ECG 03/26/2017 07:14:24 Prolonged QT interval now present ST (T wave) deviation still present Electronically Signed On 05-13-17 16:27:49 CDT by Gilberto Mcbride
== END 2017-05-12 21:41 | disposition short-term general hospital (02) ==
LOC: ER 17:58
PROC: 05HQ33Z Insertion of Infusion Device into Left External Jugular Vein, Percutaneous Approach (ICD-10-PCS; principal; 2017-05-12)
PROC: 30233N1 Transfusion of Nonautologous Red Blood Cells into Peripheral Vein, Percutaneous Approach (ICD-10-PCS; 2017-05-12)
DX: K70.30 Alcoholic cirrhosis of liver without ascites (principal); G93.40 Encephalopathy, unspecified; K92.2 Gastrointestinal hemorrhage, unspecified; E83.42 Hypomagnesemia; E87.6 Hypokalemia; D68.9 Coagulation defect, unspecified; I10 Essential (primary) hypertension
CPT/HCPCS: 36415; 51702; 71045; 80048; 80076; 80307; 80320; 80329; 81003; 82140; 82550; 82553; 83690; 83735; 83880; 84484; 85025; 85610; 85730; 86850; 86900; 86901; 87086; 87088; 93005; 96361; 96365; 96367; 96368; 96372; 96375; 99285; C9113; J1940; J2354; J2405; J2550; J3411; J3430; J3475; J7030; P9016; P9059